=== PATIENT | female | born 1945 | race Caucasian/White ===

== ENCOUNTER 2016-11-15 21:13 | Emergency (ER) | payer MEDICARE, MEDICAID ==
[2016-11-16 00:30] LABS: ABSOLUTE BASOPHILS # (AUTO) 0.1 10^3/uL (0.0-0.2); ABSOLUTE EOSINOPHILS # (AUTO) 0.1 10^3/uL (0.0-0.6); ABSOLUTE MONOCYTES (AUTO) 0.5 10^3/uL (0.1-1.4); ABSOLUTE NEUT (AUTO) 4.7 10^3/uL (1.7-8.2); EOSINOPHILS % (AUTO) 1.9 % (0-6); HEMATOCRIT 38.6 % (36.0-47.0); HEMOGLOBIN 13.5 g/dL (12.0-15.5); HGB HCT DIFFERENCE 1.9; MEAN CORPUSCULAR HGB CONC 35.1 g/dL (32.0-36.0); MEAN CORPUSCULAR VOLUME 86 fl (80-97); MONOCYTES % (AUTO) 6.5 % (3-13); RED BLOOD COUNT 4.51 10^6/uL (3.72-5.28); RED CELL DISTRIBUTION WIDTH 13.1 % (11.5-14.0); SEGMENTED NEUTROPHILS % (AUTO) 63.6 % (42-78); WHITE BLOOD COUNT 7.3 10^3/uL (4.0-10.5)
[2016-11-16 00:36] LABS: PROTHROMBIN TIME 11.7 SEC (11.4-15.4)
[2016-11-16 00:41] LABS: ALANINE AMINOTRANSFERASE 30 U/L (9-52); ALBUMIN 4.7 g/dL (3.5-5.0); ALKALINE PHOSPHATASE 80 U/L (38-126); ANION GAP 17 (5-19); ASPARTATE AMINO TRANSFERASE 17 U/L (14-36); BILIRUBIN,DIRECT 0.3 mg/dL (0.0-0.4); BILIRUBIN,TOTAL 0.5 mg/dL (0.2-1.3); BLOOD UREA NITROGEN 20 mg/dL (7-20); CALCIUM 9.8 mg/dL (8.4-10.2); CARBON DIOXIDE 25 mmol/L (22-30); CHLORIDE 99 mmol/L (98-107); CREATININE RESULT 0.84 mg/dL (0.52-1.25); GLUCOSE 283 mg/dL (75-110); POTASSIUM 4.2 mmol/L (3.6-5.0); SODIUM 140.9 mmol/L (137-145); TOTAL PROTEIN 7.7 g/dL (6.3-8.2)
[2016-11-16 00:46] LABS: APPEARANCE,URINE CLEAR; BILIRUBIN,URINE NEGATIVE (NEGATIVE); GLUCOSE, URINE 150 mg/dL (NEGATIVE); KETONES,URINE NEGATIVE (NEGATIVE); LEUKOCYTE ESTERASE,URINE MODERATE (NEGATIVE); NITRITE,URINE NEGATIVE (NEGATIVE); PROTEIN,URINE NEGATIVE (NEGATIVE); URINE SPECIFIC GRAVITY 1.013; UROBILINOGEN,URINE NEGATIVE mg/dL (<2.0)
--- NOTE | 2016-11-16 00:52 | ER Document Report ---
ED Respiratory Problem - General Chief Complaint: Breathing Difficulty Stated Complaint: DIFFICULTY BREATHING Notes: The patient is a 71-year-old female, past medical history asthma, hypertension, presents with 2 days of mild wheezing and pain in her right upper back below her shoulder blade and worse when she moves her shoulder blade. She said she has had similar pain in the past when she was diagnosed with walking pneumonia. She is using her albuterol inhaler at home with relief of her shortness of breath. She denies fevers, cough, hemoptysis, leg swelling, nausea, vomiting, back pain, numbness, tingling, headache or rash. TRAVEL OUTSIDE OF THE [place] IN LAST 30 DAYS: No - Related Data Allergies/Adverse Reactions: butorphanol tartrate [From Stadol] Allergy (Verified 12/09/13 18:14) Penicillins Allergy (Verified 12/09/13 18:14) Tetanus Vaccines and Toxoid [Tetanus] Allergy (Verified 12/09/13 18:14) Past Medical History - General Information source: Patient - Social History Smoking Status: Former Smoker - in her 20's Family History: Reviewed & Not Pertinent Patient has suicidal ideation: No Patient has homicidal ideation: No - Past Medical History Cardiac Medical History: Reports: Hx Hypercholesterolemia, Hx Hypertension Pulmonary Medical History: Reports: Hx Asthma Neurological Medical History: Reports: Hx Seizures - LAST ONE WHEN SHE WAS 18 Endocrine Medical History: Reports: Hx Diabetes Mellitus Type 1 Renal/ Medical History: Denies: Hx Peritoneal Dialysis Psychiatric Medical History: Reports: Hx Depression Past Surgical History: Reports: Hx Cholecystectomy, Hx Hysterectomy - Immunizations Hx Diphtheria, Pertussis, Tetanus Vaccination: No Hx Pneumococcal Vaccination: 01/14/12 Review of Systems - Review of Systems Notes: REVIEW OF SYSTEMS: CONSTITUTIONAL: -fevers, -chills EENT: -eye pain, -difficulty swallowing, -nasal congestion CARDIOVASCULAR: +chest pain, -syncope. RESPIRATORY: -cough, +SOB GASTROINTESTINAL: -abdominal pain, -nausea, -vomiting, -diarrhea GENITOURINARY: -dysuria, -hematuria MUSCULOSKELETAL: +back pain, -neck pain SKIN: -rash or skin lesions. HEMATOLOGIC: -easy bruising or bleeding. LYMPHATIC: -swollen, enlarged glands. NEUROLOGICAL: -altered mental status or loss of consciousness, -headache, - neurologic symptoms PSYCHIATRIC: -anxiety, -depression. ALL OTHER SYSTEMS REVIEWED AND NEGATIVE. Physical Exam - Vital signs Vitals: Temp Pulse Resp BP Pulse Ox 98 F 90 20 193/84 H 97 11/15/16 22:32 11/15/16 22:32 11/15/16 22:32 11/15/16 22:32 11/15/16 22:32 - Notes Notes: PHYSICAL EXAMINATION: GENERAL: Well-appearing, well-nourished and in no acute distress. HEAD: Atraumatic, normocephalic. EYES: Pupils equal round and reactive to light, extraocular movements intact, sclera anicteric, conjunctiva are normal. ENT: nares patent, oropharynx clear without exudates. Moist mucous membranes. NECK: Normal range of motion, supple without lymphadenopathy LUNGS: Breath sounds clear to auscultation bilaterally and equal. No wheezes rales or rhonchi. HEART: Regular rate and rhythm without murmurs ABDOMEN: Soft, nontender, normoactive bowel sounds. No guarding, no rebound. No masses appreciated. EXTREMITIES: Normal range of motion, no pitting or edema. No cyanosis. Tenderness over right lower scapula. NEUROLOGICAL: Cranial nerves grossly intact. Normal speech, normal gait. Normal sensory, motor, and reflex exams. PSYCH: Normal mood, normal affect. SKIN: Warm, Dry, normal turgor, no rashes or lesions noted. Course - Re-evaluation Re-evalutation: Patient's chest x-ray and labs are unremarkable. Her HEART score is 3. Symptoms are reproducible when she moves her right scapula. Her symptoms are not consistent with PE or aortic dissection at this time. Blood pressure improved after taking her blood pressure medications and her wheezing completely resolved after using her home albuterol. Will send home with follow- up at primary care physician. Given strict return precautions and she understands. - Vital Signs Vital signs: Temp Pulse Resp BP Pulse Ox 98 F 90 18 193/84 H 97 11/15/16 22:32 11/15/16 22:32 11/16/16 01:05 11/15/16 22:32 11/15/16 22:32 - Laboratory Result Diagrams: 11/15/16 23:55 11/15/16 23:55 Laboratory results interpreted by me: 11/15/16 11/15/16 23:55 23:55 Glucose 283 H Urine Glucose (UA) 150 H Ur Leukocyte Esterase MODERATE H - Diagnostic Test Radiology reviewed: Image reviewed, Reports reviewed Radiology results interpreted by me: CXR: NAD - EKG Interpretation by Me EKG shows normal: Sinus rhythm, [place], Intervals, QRS Complexes, ST-T Waves Discharge - Discharge Clinical Impression: Wheezing Back pain Qualifiers: Back pain location: back pain in unspecified location Chronicity: unspecified Back pain laterality: right Qualified Code(s): M54.9 - Dorsalgia, unspecified Condition: Good Disposition: HOME, SELF-CARE Additional Instructions: Take Naprosyn to help with any pain. Follow-up with your primary care physician this week to have your symptoms rechecked. SHORTNESS OF BREATH OR DYSPNEA: You were evaluated for shortness of breath, or dyspnea. Dyspnea has many causes, and some are more serious than others. Sometimes it's impossible to diagnose the cause of dyspnea with the tests that are available on an emergency basis. Based on our evaluation today, you do not need hospitalization now. We found no evidence of pneumonia, collapsed lung, blood clots in the lung, tumors , or heart failure. Causes of non-specific dyspnea can include asthma or bronchospasm, hyperventilation, emotional distress, heart disease, emphysema, fibrosis of the lung, and stiffness of the chest wall. In healthy individuals with a single episode, it's sometimes reasonable to do nothing but wait to see if the problem occurs again. Additional tests used to evaluate dyspnea can include cardiac stress testing, echocardiography, pulmonary function testing, CAT scan of the chest, bronchoscopy or pulmonary biopsy. Return if shortness of breath persists or worsens, or if you develop chest pain, fever, cough, confusion, or fainting. NORMAL EXAM AND WORKUP: At this time, your examination and workup show no significant abnormality. No significant abnormal physical findings were noted. All laboratory, EKG, and imaging (x-ray, CT scans, ultrasound) studies that were ordered show no significant abnormality. Although your examination and all studies that were ordered showed no significant abnormal finding, there are no examinations and no studies that are 100% accurate. There is always the possibility that some abnormality could exist and not be detected with physical examination or within the limits and capabilities of laboratory and other studies. You should return or follow up as you were instructed on your visit today for further evaluation if your symptoms do not resolve. FOLLOW-UP CARE: If you have been referred to a physician for follow-up care, call the physician s office for an appointment as you were instructed or within the next two days. If you experience worsening or a significant change in your symptoms, notify the physician immediately or return to the Emergency Department at any time for re-evaluation. CHEST PAIN OF UNCLEAR CAUSE: The exact cause of your chest pain isn't clear. Fortunately, there is no evidence of a dangerous medical condition. Further testing may be required to find the source of the pain. Most often, we find that this pain is coming from the chest wall -- the muscles or rib joints in the chest. But chest pain can come from the lung and lung lining, the esophagus, the heart valves or heart lining, and even the stomach or gallbladder. Rest. Eat lightly until the pain is gone. We may prescribe medicine for pain and inflammation. You should call the physician immediately if the pain radiates to the shoulder, jaw or arms; if you start to run a fever or develop a cough; or if you develop shortness of breath, or other new or alarming symptoms. NORMAL EXAM AND WORKUP: At this time, your examination and workup show no significant abnormality. No significant abnormal physical findings were noted. All laboratory, EKG, and imaging (x-ray, CT scans, ultrasound) studies that were ordered show no significant abnormality. Although your examination and all studies that were ordered showed no significant abnormal finding, there are no examinations and no studies that are 100% accurate. There is always the possibility that some abnormality could exist and not be detected with physical examination or within the limits and capabilities of laboratory and other studies. You should return or follow up as you were instructed on your visit today for further evaluation if your symptoms do not resolve. CHEST WALL PAIN: Your chest pain may be coming from the chest wall. This is often caused by straining the muscles or joints in the chest during physical activity, direct trauma, coughing, or vigorous vomiting. Persons with arthritis are especially prone to this type of pain, due to inflammation of the cartilage joints near the breast bone. Occasionally, no cause can be found. Rest from strenuous physical activity. This kind of chest pain is usually made worse by movement of the chest. Depending on the symptoms, we may prescribe medicine for pain, muscle relaxation, and antiinflammatory effects. If the pain is new, and seems to be due to muscle strain, cold packs can help. Otherwise, apply gentle warmth to the painful area for 15 minutes every hour or two. You should call contact the doctor immediately if things change. Further evaluation is needed if you develop a fever or cough, if the nature of the pain changes, or if you become short of breath. FOLLOW-UP CARE: If you have been referred to a physician for follow-up care, call the physician s office for an appointment as you were instructed or within the next two days. If you experience worsening or a significant change in your symptoms, notify the physician immediately or return to the Emergency Department at any time for re-evaluation. Referrals: BETHANY AVERY, [Primary Care Provider] - Follow up as needed
[2016-11-16] MEDS ORDERED: NAPROXEN 250 MG TABLET PO ONE (02:09)
[2016-11-16 02:21] VITALS: BP 150/79
[2016-11-16] MEDS ORDERED: NAPROXEN 250 MG TABLET ONE (02:55)
--- NOTE | 2016-11-16 17:01 | EKG REPORT ---
SEVERITY:- ABNORMAL ECG - SINUS RHYTHM NONSPECIFIC T ABNORMALITIES, LATERAL LEADS : Confirmed by: Elizabeth Guo MD 16-Nov-2016 17:00:32
== END 2016-11-16 03:00 | disposition home or self-care (01) ==
LOC: ER 21:13
DX: R06.2 Wheezing (principal); M54.9 Dorsalgia, unspecified; R06.02 Shortness of breath; I10 Essential (primary) hypertension; M54.6 Pain in thoracic spine; Z87.891 Personal history of nicotine dependence
CPT/HCPCS: 93005; 99285; 36415; 85025; 85610; 80053; 81001; 71020; 93010; A9270

== ENCOUNTER 2017-07-17 13:11 | Inpatient (IN) | payer MEDICARE, MEDICAID ==
--- NOTE | 2017-07-17 14:27 | RADIOLOGY REPORT (SQ) ---
EXAM DESCRIPTION: CHEST SINGLE VIEW COMPLETED DATE/TIME: 07/17/2017 2:19 pm REASON FOR STUDY: loss of vision left eye, lateral field COMPARISON: 11/16/2016. EXAM PARAMETERS: NUMBER OF VIEWS: One view. TECHNIQUE: Single frontal radiographic view of the chest acquired. RADIATION DOSE: NA LIMITATIONS: None. FINDINGS: LUNGS AND PLEURA: No opacities, masses or pneumothorax. No pleural effusion. MEDIASTINUM AND HILAR STRUCTURES: No masses. Contour normal. HEART AND VASCULAR STRUCTURES: Heart normal in size. Normal vasculature. BONES: No acute findings. HARDWARE: None in the chest. OTHER: No other significant finding. IMPRESSION: NO ACUTE RADIOGRAPHIC FINDING IN THE CHEST. TECHNICAL DOCUMENTATION: JOB ID: [id number] [employer]- All Rights Reserved
--- NOTE | 2017-07-17 14:28 | ER Document Report ---
ED General - General Chief Complaint: Headache Stated Complaint: BLOOD PRESSURE ISSUES Time Seen by Provider: 07/17/17 14:07 Notes: The patient is a 72-year-old female, past medical history hypertension, prior headaches, bilateral cataracts, chronic pain, chronic anxiety, chronic tachycardia (on daily propranolol), presents with 3 days of a dull frontal headache and difficulty seeing out of her peripheral right eye. In addition, she noticed that her blood pressure was elevated at home. She said that she is taking her lisinopril and hydrochlorothiazide, but did not take her propranolol or Klonopin today. Patient has had headaches like this in the past that have resolved, but she has never had the visual changes before. She is supposed to have her bilateral cataracts removed, but she had to reschedule the appointment. Patient denies focal weakness, numbness, tingling, fevers, head injury, eye pain or fevers. TRAVEL OUTSIDE OF THE [place] IN LAST 30 DAYS: No - Related Data Allergies/Adverse Reactions: butorphanol tartrate [From Stadol] Allergy (Verified 07/17/17 13:14) Penicillins Allergy (Verified 07/17/17 13:14) Tetanus Vaccines and Toxoid [Tetanus] Allergy (Verified 07/17/17 13:14) Past Medical History - General Information source: Patient - Social History Smoking Status: Unknown if Ever Smoked Family History: Reviewed & Not Pertinent Patient has suicidal ideation: No Patient has homicidal ideation: No - Past Medical History Cardiac Medical History: Reports: Hx Hypercholesterolemia, Hx Hypertension Pulmonary Medical History: Reports: Hx Asthma Neurological Medical History: Reports: Hx Seizures - LAST ONE WHEN SHE WAS 18 Endocrine Medical History: Reports: Hx Diabetes Mellitus Type 1 Renal/ Medical History: Denies: Hx Peritoneal Dialysis Psychiatric Medical History: Reports: Hx Depression Past Surgical History: Reports: Hx Cholecystectomy, Hx Hysterectomy - Immunizations Hx Diphtheria, Pertussis, Tetanus Vaccination: No Hx Pneumococcal Vaccination: 01/14/12 Review of Systems - Review of Systems Notes: REVIEW OF SYSTEMS: CONSTITUTIONAL: -fevers, -chills EENT: +difficulty seeing out of peripheral right eye, -eye pain, -difficulty swallowing, -nasal congestion CARDIOVASCULAR: -chest pain, -syncope. RESPIRATORY: -cough, -SOB GASTROINTESTINAL: -abdominal pain, - nausea, -vomiting, -diarrhea GENITOURINARY: -dysuria, -hematuria MUSCULOSKELETAL: -back pain, -neck pain SKIN: -rash or skin lesions. HEMATOLOGIC: -easy bruising or bleeding. LYMPHATIC: -swollen, enlarged glands. NEUROLOGICAL: -altered mental status or loss of consciousness, +headache, - neurologic symptoms PSYCHIATRIC: -anxiety, -depression. ALL OTHER SYSTEMS REVIEWED AND NEGATIVE. Physical Exam - Vital signs Vitals: Temp Pulse Resp BP Pulse Ox 98.1 F 122 H 20 221/82 H 98 07/17/17 13:36 07/17/17 13:36 07/17/17 13:36 07/17/17 13:36 07/17/17 13:36 - Notes Notes: PHYSICAL EXAMINATION: GENERAL: No acute distress. Very anxious. HEAD: Atraumatic, normocephalic. EYES: Pupils equal round and reactive to light, extraocular movements intact, sclera anicteric, conjunctiva are normal. Visual beasley tested and no vision out of right peripheral eye. Bedside ultrasound shows no retinal detachment and normal caliber of optic nerve. ENT: nares patent, oropharynx clear without exudates. Moist mucous membranes. NECK: Normal range of motion, supple without lymphadenopathy LUNGS: Breath sounds clear to auscultation bilaterally and equal. No wheezes rales or rhonchi. HEART: Regular rhythm, tachycardia ABDOMEN: Soft, nontender, normoactive bowel sounds. No guarding, no rebound. No masses appreciated. EXTREMITIES: Normal range of motion, no pitting or edema. No cyanosis. NEUROLOGICAL: Normal speech, normal gait. Normal sensory and motor exams. No posterior cerebellar signs on exam. PSYCH: Anxious. SKIN: Warm, Dry, normal turgor, no rashes or lesions noted. Course - Re-evaluation Re-evalutation: Patient with 3 days of a dull right-sided headache and loss of her right peripheral vision. CT shows an acute occipital lobe infarct, which would explain her symptoms. Bedside ultrasound does not show evidence of retinal detachment and her symptoms are not typical for acute closed angle glaucoma. Patient is not a TPA candidate due to 3 days of symptoms. Her ABCD2 score is 5. ASA given. NIHSS is 1. Patient provided with her dose of propranolol and Klonopin, which she said she missed and may be causing her anxiety and tachycardia. She already took her Lisinopril and HCTZ this morning. Rest of blood work is unremarkable. Patient requires inpatient admission for further evaluation and risk stratification due to her acute CVA. 07/17/17 16:[address] Price and will admit patient as inpatient to IMCU for further evaluation and treatment. - Vital Signs Vital signs: Temp Pulse Resp BP Pulse Ox 98.1 F 108 H 18 192/95 H 97 07/17/17 13:36 07/17/17 15:00 07/17/17 16:01 07/17/17 16:01 07/17/17 16:20 - Laboratory Result Diagrams: 07/17/17 14:55 07/17/17 14:55 Laboratory results interpreted by me: 07/17/17 07/17/17 14:55 14:55 MCHC 36.2 H Chloride 96 L Carbon Dioxide 31 H Glucose 217 H Calcium 10.7 H - Diagnostic Test Radiology reviewed: Image reviewed, Reports reviewed Radiology results interpreted by me: Head CT: CHRONIC CHANGES OF ATROPHY AND MICROVASCULAR ISCHEMIA. DECREASED ATTENUATION IN THE LEFT OCCIPITAL LOBE CONSISTENT WITH ACUTE INFARCT. EVIDENCE OF ACUTE STROKE: YES. 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
--- NOTE | 2017-07-17 14:43 | ER Document Report ---
ED Medical Screen (RME) - General Mode of Arrival: Ambulatory Information source: Patient TRAVEL OUTSIDE OF THE [place] IN LAST 30 DAYS: No <SINTIA BARRETO - Last Filed: 07/17/17 16:16> <LEONEL GRIDER - Last Filed: 07/17/17 16:18> - General Chief Complaint: Headache Stated Complaint: BLOOD PRESSURE ISSUES Time Seen by Provider: 07/17/17 14:07 Notes: Patient is a 72 year old female presenting to the emergency department complaining of headache behind her right eye onset 3 days ago. Patient states that she has blurry vision in her right eye. I have greeted and performed a rapid initial assessment of this patient. A comprehensive ED assessment and evaluation of the patient, analysis of test results and completion of the medical decision making process will be conducted by additional ED providers. (SINTIA BARRETO) - Related Data Allergies/Adverse Reactions: butorphanol tartrate [From Stadol] Allergy (Verified 07/17/17 13:14) Penicillins Allergy (Verified 07/17/17 13:14) Tetanus Vaccines and Toxoid [Tetanus] Allergy (Verified 07/17/17 13:14) Past Medical History - Past Medical History Cardiac Medical History: Reports: Hx Hypercholesterolemia, Hx Hypertension Pulmonary Medical History: Reports: Hx Asthma Neurological Medical History: Reports: Hx Seizures - LAST ONE WHEN SHE WAS 18 Endocrine Medical History: Reports: Hx Diabetes Mellitus Type 1 Renal/ Medical History: Denies: Hx Peritoneal Dialysis Psychiatric Medical History: Reports: Hx Depression Past Surgical History: Reports: Hx Cholecystectomy, Hx Hysterectomy - Immunizations Hx Diphtheria, Pertussis, Tetanus Vaccination: No <SINTIA BARRETO - Last Filed: 07/17/17 16:16> Physical Exam <SINTIA BARRETO - Last Filed: 07/17/17 16:16> <LEONEL GRIDER - Last Filed: 07/17/17 16:18> - Vital signs Vitals: Temp Pulse Resp BP Pulse Ox 98.1 F 122 H 20 221/82 H 98 07/17/17 13:36 07/17/17 13:36 07/17/17 13:36 07/17/17 13:36 07/17/17 13:36 - Notes Notes: GENERAL: Alert, interacts well. No acute distress. ENT: Visual field deficit in the lateral aspect of the right eye. LUNGS: Clear to auscultation bilaterally, no wheezes, rales, or rhonchi. No respiratory distress. HEART: Regular rate and rhythm. No murmurs, gallops, or rubs. ABDOMEN: Soft, non-tender. Non-distended. Bowel sounds present in all 4 quadrants. (SINTIA BARRETO) Course - Laboratory Result Diagrams: 07/17/17 14:55 07/17/17 14:55 <SINTIA BARRETO - Last Filed: 07/17/17 16:16> - Laboratory Result Diagrams: 07/17/17 14:55 07/17/17 14:55 <LEONEL GRIDER - Last Filed: 07/17/17 16:18> - Vital Signs Vital signs: Temp Pulse Resp BP Pulse Ox 98.1 F 122 H 20 221/82 H 98 07/17/17 13:36 07/17/17 13:36 07/17/17 13:36 07/17/17 13:36 07/17/17 13:36 - Laboratory Laboratory results interpreted by me: 07/17/17 07/17/17 14:55 14:55 MCHC 36.2 H Chloride 96 L Carbon Dioxide 31 H Glucose 217 H Calcium 10.7 H Doctor's Discharge <SINTIA BARRETO - Last Filed: 07/17/17 16:16> <LEONEL GRIDER - Last Filed: 07/17/17 16:18> - Discharge Clinical Impression: Acute CVA (cerebrovascular accident), Visual field loss following cerebrovascular accident Condition: Stable Referrals: BETHANY AVERY DO [Primary Care Provider] - Follow up as needed Scribe Documentation - Scribe Written by Scribe:: Juventino Carr, 07/17/2017 14:42 acting as scribe for :: Tyler <SINTIA BARRETO - Last Filed: 07/17/17 16:16>
[2017-07-17] MEDS ORDERED: CLONAZEPAM 1 MG TABLET PO ONE (14:47)
[2017-07-17] MEDS ORDERED: LISINOPRIL 10 MG TABLET PO ONE (14:47)
[2017-07-17] MEDS ORDERED: NORMAL SALINE 1000 ML 1,000 ML IV ONE (14:47)
[2017-07-17] MEDS ORDERED: PROPRANOLOL HCL 20 MG TABLET PO ONE (14:47)
[2017-07-17] MEDS ORDERED: HYDROCHLOROTHIAZIDE 12.5 MG CAPSULE PO ONE (14:47)
[2017-07-17] MEDS ORDERED: ASPIRIN 325 MG TABLET PO ONE (14:59)
--- NOTE | 2017-07-17 15:00 | RADIOLOGY REPORT (SQ) ---
EXAM DESCRIPTION: CT HEAD WITHOUT COMPLETED DATE/TIME: 07/17/2017 2:33 pm REASON FOR STUDY: loss of vision left eye, lateral field COMPARISON: None. TECHNIQUE: Axial images acquired through the brain without intravenous contrast. Images reviewed wi th bone, brain and subdural windows. Images stored on PACS. All CT scanners at this facility use dose modulation, iterative reconstruction, and/or weight based d osing when appropriate to reduce radiation dose to as low as reasonably achievable (ALARA). [facility]: Dose Right [facility]: CareDose [facility]: Dose Right [facility]: Teradose 4D [facility]: Smart [employer] RADIATION DOSE: CT Rad equipment meets quality standard of care and radiation dose reduction techniq ues were employed. CTDIvol: 64.6 mGy. DLP: 1163 mGy-cm.mGy. LIMITATIONS: None. FINDINGS: VENTRICLES: Prominent. CEREBRUM: No masses. No hemorrhage. No midline shift. Areas of low density in the white matter mos t likely due to chronic micro-vascular ischemic change. Area of decreased attenuation in the left oc cipital lobe. CEREBELLUM: No masses. No hemorrhage. No alteration of density. No evidence for acute infarction. EXTRAAXIAL SPACES: Age-related involutional change. No fluid collections. No masses. ORBITS AND GLOBE: No intra- or extraconal masses. Normal contour of globe without masses. CALVARIUM: No fracture. PARANASAL SINUSES: No fluid or mucosal thickening. SOFT TISSUES: No mass or hematoma. OTHER: No other significant finding. IMPRESSION: CHRONIC CHANGES OF ATROPHY AND MICROVASCULAR ISCHEMIA. DECREASED ATTENUATION IN THE LEF T OCCIPITAL LOBE CONSISTENT WITH ACUTE INFARCT. EVIDENCE OF ACUTE STROKE: YES. 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 Category of Critical Result: Acute cerebral infarct. TECHNICAL DOCUMENTATION: JOB ID: [id number] Quality ID # [id number]: Final reports with documentation of one or more dose reduction techniques (e.g., Au tomated exposure control, adjustment of the mA and/or kV according to patient size, use of iterative reconstruction technique) 2010 [employer]- All Rights Reserved
[2017-07-17 15:02] LABS: ABSOLUTE LYMPHOCYTES (AUTO) 1.3 10^3/uL (0.5-4.7); ABSOLUTE MONOCYTES (AUTO) 0.3 10^3/uL (0.1-1.4); BASOPHILS % (AUTO) 0.5 % (0-2); EOSINOPHILS % (AUTO) 0.6 % (0-6); HEMATOCRIT 41.5 % (36.0-47.0); LYMPHOCYTES % (AUTO) 16.9 % (13-45); MEAN CORPUSCULAR HEMOGLOBIN 31.8 pg (27.0-33.4); MEAN CORPUSCULAR HGB CONC 36.2 g/dL (32.0-36.0); MEAN CORPUSCULAR VOLUME 88 fl (80-97); MONOCYTES % (AUTO) 4.4 % (3-13); PLATELET COUNT 215 10^3/uL (150-450); RED BLOOD COUNT 4.72 10^6/uL (3.72-5.28); RED CELL DISTRIBUTION WIDTH 13.6 % (11.5-14.0); SEGMENTED NEUTROPHILS % (AUTO) 77.6 % (42-78); TOTAL CELLS COUNTED % (AUTO) 100 %; WHITE BLOOD COUNT 7.8 10^3/uL (4.0-10.5)
[2017-07-17 15:08] LABS: INTERNATIONAL RATION (INR) 0.81; PROTHROMBIN TIME 11.8 SEC (11.4-15.4)
[2017-07-17 15:10] LABS: PARTIAL THROMBOPLASTIN TIME 27.3 SEC (23.5-35.8)
[2017-07-17 15:25] LABS: ALANINE AMINOTRANSFERASE 31 U/L (9-52); ALBUMIN 4.9 g/dL (3.5-5.0); ALKALINE PHOSPHATASE 80 U/L (38-126); ANION GAP 13 (5-19); ASPARTATE AMINO TRANSFERASE 23 U/L (14-36); BILIRUBIN,DIRECT 0.2 mg/dL (0.0-0.4); BILIRUBIN,TOTAL 0.4 mg/dL (0.2-1.3); BLOOD UREA NITROGEN 15 mg/dL (7-20); CALCIUM 10.7 mg/dL (8.4-10.2); CARBON DIOXIDE 31 mmol/L (22-30); CHLORIDE 96 mmol/L (98-107); CREATINE KINASE 49 U/L (30-135); GLUCOSE 217 mg/dL (75-110); POTASSIUM 4.6 mmol/L (3.6-5.0); SODIUM 140.1 mmol/L (137-145); TOTAL PROTEIN 8.1 g/dL (6.3-8.2)
--- NOTE | 2017-07-17 15:34 | ER Document Report ---
ED NIH Stroke Scale - NIH Stroke Scale When completed:: Before Alteplase *: 1. NIH scale should be completed with appropriate accompanying assessment tools. *: 2. The NIH should reflect what the patient is capable of doing and should not be coached by the clinician. 1a. Level of Consciousness: 0=Alert;keenly responsive -: 1=Drowsy -: 2=Obtunded -: 3=Coma/unresponsive or reflex to noxious stimuli. 1a. Responses: 0 1b. Orientation Questions: a. What month is it? -: b. How old are you? -: 0=Answers both questions correctly. -: 1=Answers one question correctly or patient is intubated or has orotracheal trauma. -: 2=Answers neither question correctly. 1b. Responses: 0 1c. Response to commands: a. Open and close eyes? -: b. Cafe Aide and release hand? -: Credit is given despite weakness. Demonstration of task is permitted. Substitute command if hands cannot be used. -: 0=Performs both tasks correctly -: 1=Performs one task correctly -: 2=Performs neither task correctly 1c. Responses: 0 2. Gaze: Establish eye contact and instruct patient to "Follow my finger" -: 0=Normal -: 1=Partial gaze palsy. Gaze is abnormal in one or both eyes, but where forced deviation or total gaze paresis is not present. -: 2=Forced deviation or total gaze paresis. 2. Responses: 0 3. Visual Parsons: Sees fingers in all four quadrants. -: 0=No visual loss. -: 1=Partial hemianopsia. -: 2=Complete hemianopsia. -: 3=Bilateral hemianopsia (including Cortical blindness) 3. Responses: 1 4. Facial Movement: Instruct patient to: -: a. Show me your teeth -: b. Raise your eyebrows -: c. Close your eyes -: d. Smile -: 0=Normal symmetrical movement -: 1=Minor paralysis (flattened nasolabial fold, asymmetry on smiling). -: 2=Partial paralysis (total or near total paralysis of lower face). -: 3=Complete paralysis of upper and lower face 4. Responses: 0 5. Motor functions (left arm): Alternate sides and extend each arm with palms down (90 degrees if sitting or 45 degrees for supine). -: 0=No drift;limb holds for full 10 seconds. -: 1=Drift; limb holds but drifts down before full 10 seconds, but does not hit bed. -: 2=Some effort against gravity; limb cannot get to or maintain position. -: 3=No effort against gravity; limb falls. -: 4=No movement. -: UN=Amputation, joint fusion, explain in comments. 5. Responses (left arm): 0 5. Motor Functions (right arm): Alternate sides and extend each arm with palms down (90 degrees if sitting or 45 degrees for supine). -: 0=No drift;limb holds for full 10 seconds. -: 1=Drift; limb holds but drifts down before full 10 seconds, but does not hit bed. -: 2=Some effort against gravity; limb cannot get to or maintain position. -: 3=No effort against gravity; limb falls. -: 4=No movement. -: UN=Amputation, joint fusion, explain in comments. 5. Responses (right arm): 0 6. Motor Functions (left leg): With patient lying supine, alternate sides and extend each leg (30 degrees always while supine). -: 0=No drift, leg holds position for full 5 seconds -: 1=Drift; leg falls before full 5 seconds but does not hit bed. -: 2=Some effort against gravity, leg falls to bed but some effort against gravity. -: 3=No effort against gravity, leg falls to bed immediately. -: 4=No movement. -: UN=Amputation, joint fusion; explain in comments. 6. Responses (left leg): 0 6. Motor Functions (right leg): With patient lying supine, alternate sides and extend each leg (30 degrees always while supine). -: 0=No drift, leg holds position for full 5 seconds -: 1=Drift; leg falls before full 5 seconds but does not hit bed. -: 2=Some effort against gravity, leg falls to bed but some effort against gravity. -: 3=No effort against gravity, leg falls to bed immediately. -: 4=No movement. -: UN=Amputation, joint fusion; explain in comments. 6. Responses (right leg): 0 7. Limb Ataxia: With eyes open instruct patient to: -: a. "Touch your finger to your nose". -: b. "Touch your heel to your massey" -: 0=Absent -: 1=Present in one limb. -: 2=Present in two limbs. -: UN=Amputation or joint fusion; explain in comments. 7. Responses: 0 8. Sensory: Test sensation using pinprick or noxious stimuli. Test as many body parts as possible. -: 0=Normal;no sensory loss -: 1=Mile to moderate sensory loss (patient feels pin prick but is less sharp on affected side). -: 2=Severe or total sensory loss. 8. Responses: 0 9. Best Language: Instruct patient to: -: a. "Describe what you see in this picture." -: b. "Name the items in this picture." -: c. "Read these sentences." -: 0=No aphasia, normal -: 1=Mild to moderate aphasia. -: 2=Severe aphasia -: 3=Mute, global aphasia, no usable speech or auditory comprehension. 9. Responses: 0 10. Articulation, Dysarthia: Instruct patient to: -: "Read these words" or "Repeat these words" -: 0=Normal -: 1=Mild to moderate; patient may slur some words but can be understood without difficulty. -: 2=Severe; patients speech so slurred as to be unintelligible in the absence of dysphasia. -: UN=Intubated or other physical barrier, explain in comments. 10. Responses: 0 11. Extinction or inattention: 0=No abnormality -: 1= Visual, tactile, auditory, spatial, or personal inattention or extinction to bilateral simulation in one or the sensory modalities. -: 2=Profound kathy-inattention or kathy-inattention to more than one modality; does not recognize own hand. 11. Responses: 0 Total Score: 1
[2017-07-17] MEDS ORDERED: MAG HYDROX/AL HYDROX/SIMETH SUSP 30 ML UDCUP PO PRN (16:52)
[2017-07-17] MEDS ORDERED: NIFEDIPINE 30 MG TAB.ER.24 PO ONE ×2 (17:04→21:00)
[2017-07-17] MEDS ORDERED: NORMAL SALINE 1000 ML 1,000 ML IV PRN ×2 (17:32→17:43)
[2017-07-17] MEDS ORDERED: DEXTROSE 40% GEL 15 GM TUBE PO PRN ×2 (17:32)
[2017-07-17] MEDS ORDERED: DEXTROSE 50%-WATER 25 GM/50 ML DISP.SYRIN IV PRN ×2 (17:32)
[2017-07-17] MEDS ORDERED: GLUCAGON,HUMAN RECOMB 1 MG INJ IM PRN (17:32)
--- NOTE | 2017-07-17 17:42 | PDOC H&P ---
History of Present Illness Admission Date/PCP: 07/17/2017 BETHANY AVERY DO Patient complains of: Right Eye Peripheral Vision Loss 3 days ago. History of Present Illness: HEIDI WEISS is a 72 year old female present to the ER with 3 days of right eye vision changes. Pt states that she had severe headache 3 days ago and then noticed loss of vision in her peripheral eye. Pt states that she stayed at home due to hoping that it would go away. Pt states that he was diagnosed with Paroxysmal A. Fibrillation several years ago. Pt states that she was placed on Inderal and later stated taken a baby aspirin. Pt states that she stopped aspirin after she developed a stomach ulcer and stopped aspirin. Past Medical History Cardiac Medical History: Reports: Hyperlipidema, Hypertension Pulmonary Medical History: Reports: Asthma Neurological Medical History: Reports: Seizures - LAST ONE WHEN SHE WAS 18 Endocrine Medical History: Reports: Diabetes Mellitus Type 1 Psychiatric Medical History: Reports: Depression Past Surgical History Past Surgical History: Reports: Cholecystectomy, Hysterectomy Social History Smoking Status: Unknown if Ever Smoked Frequency of Alcohol Use: None Hx Recreational Drug Use: No Hx Prescription Drug Abuse: No - Advance Directive Resuscitation Status: Full Code Family History Family History: Reviewed & Not Pertinent Parental Family History Reviewed: Yes Children Family History Reviewed: Yes Sibling(s) Family History Reviewed.: Yes Medication/Allergy Home Medications: Alprazolam [Xanax 2 mg Tablet] 1 tab PO Q6H PRN 01/09/13 Cyclobenzaprine HCl [Flexeril 10 mg Tablet] 5 mg PO TIDP PRN 01/09/13 Ferrous Sulfate [Iron] 325 mg PO TID 01/09/13 Lisinopril/Hydrochlorothiazide [Lisinopril-Hctz 20-12.5 mg Tab] 1 each PO BID Albuterol Sulfate [Proair HFA] 2 puff IH Q4 PRN 12/09/13 Amitriptyline HCl [Elavil 75 mg Tablet] 75 mg PO QHS 12/09/13 Esomeprazole Magnesium [Nexium] 40 mg PO DAILY PRN 12/09/13 Levothyroxine Sodium [Synthroid] 200 mcg PO DAILY 12/09/13 Lovaza 4 cap.sr PO DAILY 12/09/13 Meclizine HCl [Antivert 25 mg Tablet] 25 mg PO QIDP PRN 12/09/13 Metformin HCl [Glucophage] 1,000 mg PO BID 12/09/13 Hurst, Insulin Disposable [Unifine Pentips] 1 each MC ASDIR PRN 12/09/13 Polyethylene Glycol [Polyox Wsr-301] 17 gm PO DAILY 12/09/13 Promethazine HCl 25 mg PO Q6HP PRN 12/09/13 Propranolol HCl [Inderal 20 mg Tablet] 20 mg PO TID 12/09/13 Tiotropium Walker [Spiriva Handihaler 18 mcg/dose (30 Dose)] 1 cap IH DAILY Levofloxacin [Levaquin 750 mg Tablet] 750 mg PO DAILY #10 tab 08/03/14 Methylprednisolone [Medrol Dosepack (4 mg/Tab) 21 Tab/Dosepak] 4 mg PO ASDIR PRN #21 tab.ds.pk 08/03/14 Oxycodone HCl 30 mg PO Q6HP PRN #30 tablet 08/03/14 Doxycycline Hyclate 100 mg PO BID #14 capsule 02/12/16 Hydrocodone/Acetaminophen [Barnhart 5-325 mg Tablet] 1 - 2 tab PO Q6 #14 tablet Allergies/Adverse Reactions: butorphanol tartrate [From Stadol] Allergy (Verified 07/17/17 13:14) Penicillins Allergy (Verified 07/17/17 13:14) Tetanus Vaccines and Toxoid [Tetanus] Allergy (Verified 07/17/17 13:14) Review of Systems Constitutional: ABSENT: chills, fever(s), headache(s), weight gain, weight loss Eyes: PRESENT: visual disturbances Ears: ABSENT: hearing changes Cardiovascular: ABSENT: chest pain, dyspnea on exertion, edema, orthropnea, palpitations Respiratory: ABSENT: cough, hemoptysis Gastrointestinal: ABSENT: abdominal pain, constipation, diarrhea, hematemesis, hematochezia, nausea, vomiting Genitourinary: ABSENT: dysuria, hematuria Musculoskeletal: ABSENT: joint swelling Integumentary: ABSENT: rash, wounds Neurological: PRESENT: other - Right eye peripheral vision loss Psychiatric: ABSENT: anxiety, depression, homidical ideation, suicidal ideation Endocrine: ABSENT: cold intolerance, heat intolerance, polydipsia, polyuria Hematologic/Lymphatic: ABSENT: easy bleeding, easy bruising Physical Exam Vital Signs: Temp Pulse Resp BP Pulse Ox 98.1 F 108 H 18 192/95 H 97 07/17/17 13:36 07/17/17 15:00 07/17/17 16:01 07/17/17 16:01 07/17/17 16:20 Intake & Output 07/16/17 07/17/17 07/18/17 06:59 06:59 06:59 Weight 70.5 kg General appearance: PRESENT: no acute distress, well-developed, well-nourished Head exam: PRESENT: atraumatic, normocephalic Eye exam: PRESENT: conjunctiva pink, EOMI Ear exam: PRESENT: normal external ear exam Mouth exam: PRESENT: moist, tongue midline Neck exam: ABSENT: carotid bruit, JVD, lymphadenopathy, thyromegaly Respiratory exam: PRESENT: clear to auscultation giuliano. ABSENT: rales, rhonchi, wheezes Cardiovascular exam: PRESENT: RRR. ABSENT: diastolic murmur, rubs, systolic murmur Pulses: PRESENT: normal dorsalis pedis pul Vascular exam: PRESENT: normal capillary refill GI/Abdominal exam: PRESENT: normal bowel sounds, soft. ABSENT: distended, guarding, mass, organolmegaly, rebound, tenderness Rectal exam: PRESENT: deferred Extremities exam: PRESENT: full ROM. ABSENT: calf tenderness, clubbing, pedal edema Musculoskeletal exam: PRESENT: full ROM Neurological exam: PRESENT: alert, awake, oriented to person, oriented to place , oriented to time, oriented to situation Psychiatric exam: PRESENT: appropriate affect, normal mood. ABSENT: homicidal ideation, suicidal ideation Skin exam: PRESENT: dry, intact, warm. ABSENT: cyanosis, rash Results Laboratory Results: 07/17/17 14:55 07/17/17 14:55 07/17/17 07/17/17 14:55 14:55 WBC 7.8 RBC 4.72 Hgb 15.0 Hct 41.5 MCV 88 MCH 31.8 MCHC 36.2 H RDW 13.6 Plt Count 215 Seg Neutrophils % 77.6 Lymphocytes % 16.9 Monocytes % 4.4 Eosinophils % 0.6 Basophils % 0.5 Absolute Neutrophils 6.0 Absolute Lymphocytes 1.3 Absolute Monocytes 0.3 Absolute Eosinophils 0.0 Absolute Basophils 0.0 Sodium 140.1 Potassium 4.6 Chloride 96 L Carbon Dioxide 31 H Anion Gap 13 BUN 15 Creatinine 0.73 Est GFR ( Amer) > 60 Est GFR (Non-Af Amer) > 60 Glucose 217 H Calcium 10.7 H Total Bilirubin 0.4 AST 23 ALT 31 Alkaline Phosphatase 80 Total Protein 8.1 Albumin 4.9 07/17/17 07/17/17 14:55 14:55 Creatine Kinase 49 Troponin I < 0.012 Impressions: Chest X-Ray 07/17/17 14:12 IMPRESSION: NO ACUTE RADIOGRAPHIC FINDING IN THE CHEST. Head CT 07/17/17 14:12 IMPRESSION: CHRONIC CHANGES OF ATROPHY AND MICROVASCULAR ISCHEMIA. DECREASED ATTENUATION IN THE LEFT OCCIPITAL LOBE CONSISTENT WITH ACUTE INFARCT. EVIDENCE OF ACUTE STROKE: YES. 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 fib. Will place on Eliquis. Recommend Holter monitor as outpatient. Will check 2 D echo, Carotid U/S, PT/OT/ST, HbgA1C, Lipid Profile, TSH/Free T4. (2) Visual field loss following cerebrovascular accident Is this a current diagnosis for this admission?: Yes Plan: Secondary to Acute Stroke: Will continue ASA and start Eliquis. Pt states that symptoms occurred 3 days ago and confirmed by . (3) Hyperglycemia due to type 2 diabetes mellitus Is this a current diagnosis for this admission?: Yes Plan: Will place on SSI and Lantus 15 units SC Daily. (4) Hypertensive urgency Is this a current diagnosis for this admission?: Yes Plan: Will place on Procardia 30mg PO Qdaily, Metoprolol 25mg PO BID, Lisinopril 40 mg PO Qdaily. Will continue to monitor. (5) Hypercalcemia Is this a current diagnosis for this admission?: Yes Plan: Will check calcium level in am. Will check Ionized Ca. Will check Vit D 25 OH , PTH. (6) History of gastric ulcer Is this a current diagnosis for this admission?: Yes Plan: Will continue pt on PPI. (7) DVT prophylaxis Is this a current diagnosis for this admission?: Yes Plan: SCDs/ Eliquis - Time Time Spent: 30 to 50 Minutes Anticipated discharge: Home
--- NOTE | 2017-07-17 18:52 | EKG REPORT ---
SEVERITY:- NORMAL ECG - SINUS RHYTHM : Confirmed by: Jarek Mars MD 17-Jul-2017 18:52:10
[2017-07-17] MEDS: ACETAMINOPHEN 325 MG TABLET PO PRN (20:00)
--- NOTE | 2017-07-17 20:15 | RADIOLOGY REPORT (SQ) ---
EXAM DESCRIPTION: CAROTID DOPPLER COMPLETED DATE/TIME: 07/17/2017 7:51 pm REASON FOR STUDY: CVA COMPARISON: None. TECHNIQUE: Grayscale ultrasound, Doppler velocity and spectra, and color Doppler images acquired of the extra-cranial carotid and vertebral arteries. Images stored on PACS. LIMITATIONS: None. FINDINGS: RIGHT CAROTID CCA Velocities: Within normal limits. ICA Velocities Peak systolic 122 m/s. End diastolic 27 m/s. Proximal ICA/CCA peak systolic ratio 1.1. Spectra normal. No significant plaque. LEFT CAROTID CCA Velocities: Within normal limits. ICA Velocities Peak systolic 102 m/s. End diastolic 19 m/s. Proximal ICA/CCA peak systolic ratio 0.8. Spectra normal. No significant plaque. VERTEBRAL ARTERIES: Antegrade flow. Normal waveforms. SUBCLAVIAN ARTERIES: No finding. OTHER: No other significant finding. IMPRESSION: NO HEMODYNAMICALLY SIGNIFICANT STENOSIS. COMMENT: Quality ID #[id number]: Velocity criteria are extrapolated from the diameter data as defined by t [place] Society of Radiologists in Ultrasound Consensus Conference. Radiology 2003: 229; 340-346. TECHNICAL DOCUMENTATION: JOB ID: [id number] [place]-72 2010 [employer]- All Rights Reserved
[2017-07-17] MEDS ORDERED: LORAZEPAM INJ 2 MG/1 ML VIAL IV ONE (21:00)
[2017-07-17] MEDS: METOPROLOL TARTRATE 25 MG TABLET PO SCH (21:06)
[2017-07-17] MEDS: APIXABAN 5 MG TABLET PO SCH (21:06)
--- NOTE | 2017-07-17 22:34 | RADIOLOGY REPORT (SQ) ---
EXAM DESCRIPTION: MRI HEAD WITHOUT COMPLETED DATE/TIME: 07/17/2017 10:13 pm REASON FOR STUDY: CVA COMPARISON: None. TECHNIQUE: Multiplanar imaging includes non-contrasted T1, T2, FLAIR, and Diffusion with ADC map seq uences. Images stored on PACS. LIMITATIONS: None. FINDINGS: ANATOMY: No anomalies. Normal vascular flow voids. Pituitary fossa normal. CSF SPACES: Normal in size and contour. No hemorrhage. CEREBRUM: Scattered high-signal intensity lesions scattered throughout the white matter on FLAIR imag ing with distribution suggesting chronic micro-vascular ischemic change. No evidence of hemorrhage, mass or extraaxial fluid collection. POSTERIOR FOSSA: No signal alteration. No hemorrhage. No edema, masses or mass effect. Internal oswaldo tory canals, cerebello-pontine angles, mastoids normal. DIFFUSION: Positive for acute or sub-acute infarction in the left occipital lobe. ORBITS: No masses. Globes normal. PARANASAL SINUSES: No fluid levels. Mucosa normal. OTHER: No other significant finding. IMPRESSION: Positive for acute or sub-acute infarction in the left occipital lobe. 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
--- NOTE | 2017-07-17 22:36 | RADIOLOGY REPORT (SQ) ---
EXAM DESCRIPTION: MRA HEAD WITHOUT COMPLETED DATE/TIME: 07/17/2017 10:13 pm REASON FOR STUDY: CVA COMPARISON: None. TECHNIQUE: Axial 3-D [id number] acquisition imaging performed through the brain in the area of t he [place] of [place]. Images reformatted using 3-D MIPS. LIMITATIONS: None. 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 No large masses. 3-D MIP: No aneurysm. 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 No significant stenosis. OTHER: No other significant finding. IMPRESSION: Occluded left LEAD WORKER OF HOUSEKEEPING AND LAUNDRY beyond its initial 2 cm. TECHNICAL DOCUMENTATION: JOB ID: [id number] [place]-72 2010 [employer]- All Rights Reserved
[2017-07-17] MEDS: AMITRIPTYLINE HCL 75 MG TABLET PO SCH (23:43)
[2017-07-18 05:11] LABS: ABSOLUTE EOSINOPHILS # (AUTO) 0.1 10^3/uL (0.0-0.6); ABSOLUTE LYMPHOCYTES (AUTO) 1.7 10^3/uL (0.5-4.7); ABSOLUTE MONOCYTES (AUTO) 0.4 10^3/uL (0.1-1.4); ABSOLUTE NEUT (AUTO) 3.2 10^3/uL (1.7-8.2); BASOPHILS % (AUTO) 0.8 % (0-2); HEMATOCRIT 34.9 % (36.0-47.0); LYMPHOCYTES % (AUTO) 30.6 % (13-45); MEAN CORPUSCULAR HEMOGLOBIN 31.3 pg (27.0-33.4); MEAN CORPUSCULAR HGB CONC 35.4 g/dL (32.0-36.0); MEAN CORPUSCULAR VOLUME 88 fl (80-97); MONOCYTES % (AUTO) 7.8 % (3-13); PLATELET COUNT 196 10^3/uL (150-450); RED BLOOD COUNT 3.94 10^6/uL (3.72-5.28); RED CELL DISTRIBUTION WIDTH 13.5 % (11.5-14.0); SEGMENTED NEUTROPHILS % (AUTO) 58.8 % (42-78); TOTAL CELLS COUNTED % (AUTO) 100 %; WHITE BLOOD COUNT 5.5 10^3/uL (4.0-10.5)
[2017-07-18 05:25] LABS: ALANINE AMINOTRANSFERASE 28 U/L (9-52); ALBUMIN 3.6 g/dL (3.5-5.0); ALKALINE PHOSPHATASE 60 U/L (38-126); ANION GAP 8 (5-19); ASPARTATE AMINO TRANSFERASE 17 U/L (14-36); BILIRUBIN,DIRECT 0.2 mg/dL (0.0-0.4); BILIRUBIN,TOTAL 0.3 mg/dL (0.2-1.3); BLOOD UREA NITROGEN 15 mg/dL (7-20); CALCIUM 9.5 mg/dL (8.4-10.2); CARBON DIOXIDE 29 mmol/L (22-30); CHLORIDE 101 mmol/L (98-107); GLUCOSE 237 mg/dL (75-110); POTASSIUM 4.1 mmol/L (3.6-5.0); SODIUM 138.1 mmol/L (137-145); TRIGLYCERIDES 219 mg/dL (<150)
[2017-07-18 05:27] LABS: HEMOGLOBIN 12.4 g/dL (12.0-15.5)
[2017-07-18 05:36] LABS: DIRECT LDL 106 mg/dL (<100)
[2017-07-18 05:41] LABS: FREE T4 (FREE THYROXINE) 1.45 ng/dL (0.78-2.19); VLDL CHOLESTEROL 43.8 mg/dL (10-31)
[2017-07-18 05:54] LABS: THYROID STIMULATING HORMONE 0.26 uIU/mL (0.47-4.68)
[2017-07-18] MEDS: LANSOPRAZOLE 30 MG TAB.RAP.DR PO SCH (06:39)
[2017-07-18] MEDS ORDERED: LOVAZA PO SCH (10:00)
[2017-07-18] MEDS ORDERED: INSULIN GLARGINE,HUM.REC.ANLOG 300 UNIT/3 ML INSULN.PEN SUBCUT SCH (10:00)
[2017-07-18] MEDS ORDERED: ALBUTEROL SULFATE HFA (90 MCG/PUFF) 8 GM MDI (1 MDI/ER DISP) IH PRN (11:23)
[2017-07-18] MEDS ORDERED: (PENDING PHARMACY ID) (Oxycodone Hcl/Acetaminophen [Oxycodone-Acetaminophen 10-325] 1 TAB) PO PRN (11:23)
--- NOTE | 2017-07-18 11:48 | PDOC PROGRESS REPORT ---
Subjective Progress Note for:: 07/18/17 Subjective:: Patient admitted for right peripheral vision loss due to an occipital stroke. Patient is doing well. Explained to her that she has a stroke in the part of the brain which affects her vision. Explained to her that she should evaluated for afib. with a holter monitor. Explained to her that the medication can cause her to bleed however if she doesn't treat her afib she is at risk for another stroke. Reason For Visit: ACUTE LEFT OCCIPITAL LOBE WITH RIGHT EYE VISION Physical Exam Vital Signs: Temp Pulse Resp BP Pulse Ox 97.9 F 86 18 140/69 H 95 07/18/17 07:59 07/18/17 08:00 07/18/17 08:00 07/18/17 08:00 07/18/17 08:00 Intake & Output 07/17/17 07/18/17 07/19/17 06:59 06:59 06:59 Intake Total 1050 Balance 1050 Weight 72.3 kg General appearance: PRESENT: no acute distress, disheveled, other - elderly Head exam: PRESENT: atraumatic, normocephalic Eye exam: PRESENT: EOMI. ABSENT: scleral icterus Ear exam: PRESENT: normal external ear exam Mouth exam: PRESENT: moist, tongue midline Neck exam: ABSENT: carotid bruit, JVD, lymphadenopathy, thyromegaly Respiratory exam: PRESENT: clear to auscultation giuliano. ABSENT: rales, rhonchi, wheezes Cardiovascular exam: PRESENT: RRR. ABSENT: diastolic murmur, rubs, systolic murmur Pulses: PRESENT: normal dorsalis pedis pul Vascular exam: PRESENT: normal capillary refill GI/Abdominal exam: PRESENT: normal bowel sounds, soft. ABSENT: distended, guarding, mass, organolmegaly, rebound, tenderness Rectal exam: PRESENT: deferred Extremities exam: PRESENT: full ROM. ABSENT: calf tenderness, clubbing, pedal edema Neurological exam: PRESENT: alert, awake, oriented to person, oriented to place , oriented to time, oriented to situation, other - no peripheral vision in right eye.. ABSENT: motor sensory deficit Psychiatric exam: PRESENT: appropriate affect, normal mood. ABSENT: homicidal ideation, suicidal ideation Skin exam: PRESENT: dry, intact, warm. ABSENT: cyanosis, rash Results Laboratory Results: 07/18/17 04:35 07/18/17 04:35 07/17/17 07/18/17 07/18/17 18:08 04:35 04:35 WBC 5.5 RBC 3.94 Hgb 12.4 D Hct 34.9 L MCV 88 MCH 31.3 MCHC 35.4 RDW 13.5 Plt Count 196 Seg Neutrophils % 58.8 Lymphocytes % 30.6 Monocytes % 7.8 Eosinophils % 2.0 Basophils % 0.8 Absolute Neutrophils 3.2 Absolute Lymphocytes 1.7 Absolute Monocytes 0.4 Absolute Eosinophils 0.1 Absolute Basophils 0.0 Sodium 138.1 Potassium 4.1 Chloride 101 Carbon Dioxide 29 Anion Gap 8 BUN 15 Creatinine 0.60 Est GFR ( Amer) > 60 Est GFR (Non-Af Amer) > 60 Glucose 237 H Calcium 9.5 Ionized Calcium Yousuf 1.14 Total Bilirubin 0.3 AST 17 ALT 28 Alkaline Phosphatase 60 Total Protein 6.0 L Albumin 3.6 Triglycerides 219 H Cholesterol 174.80 LDL Cholesterol Direct 106 H VLDL Cholesterol 43.8 H HDL Cholesterol 33 L TSH Free T4 07/18/17 04:35 WBC RBC Hgb Hct MCV MCH MCHC RDW Plt Count Seg Neutrophils % Lymphocytes % Monocytes % Eosinophils % Basophils % Absolute Neutrophils Absolute Lymphocytes Absolute Monocytes Absolute Eosinophils Absolute Basophils Sodium Potassium Chloride Carbon Dioxide Anion Gap BUN Creatinine Est GFR ( Amer) Est GFR (Non-Af Amer) Glucose Calcium Ionized Calcium Yousuf Total Bilirubin AST ALT Alkaline Phosphatase Total Protein Albumin Triglycerides Cholesterol LDL Cholesterol Direct VLDL Cholesterol HDL Cholesterol TSH 0.26 L Free T4 1.45 Impressions: Brain MRI with MRA 07/17/17 00:00 IMPRESSION: Occluded left PROCESS CONTROL ENGINEER beyond its initial 2 cm. Carotid Doppler Study 07/17/17 00:00 IMPRESSION: NO HEMODYNAMICALLY SIGNIFICANT STENOSIS. Head MRI 07/17/17 00:00 IMPRESSION: Positive for acute or sub-acute infarction in the left occipital lobe. 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 Head CT 07/17/17 14:12 IMPRESSION: CHRONIC CHANGES OF ATROPHY AND MICROVASCULAR ISCHEMIA. DECREASED ATTENUATION IN THE LEFT OCCIPITAL LOBE CONSISTENT WITH ACUTE INFARCT. EVIDENCE OF ACUTE STROKE: YES. 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 Patient with history of paroxysmal afib on metoprolol but no eliquis. Will refer to cardiology for holter monitor. Carotid doppler with no significant occlusion. Cardiac echo has not been completed as is the weekend. Patient without any weakness of her arms or legs. Continue eliquis,baby aspirin,and high dose statin. (2) Visual field loss following cerebrovascular accident Is this a current diagnosis for this admission?: Yes Plan: Secondary to stroke. Patient currently on eliquis, aspirin and high dose statin. (4) History of gastric ulcer Is this a current diagnosis for this admission?: Yes Plan: Continue on PPI. (5) Hypercalcemia Is this a current diagnosis for this admission?: Yes Plan: Improved with IV hydration. PTH is still pending. Will discontinue IV fluids and monitor. (6) Hyperglycemia due to type 2 diabetes mellitus Is this a current diagnosis for this admission?: Yes Plan: Not well controlled with A1c of 9.5 now with stroke. Patient may need to be need to continue long acting insulin on discharge. Will increase Lantus 20units daily. At 15units blood glucoses >200s. Patient requires better control considering her acute stroke. (7) DVT prophylaxis Is this a current diagnosis for this admission?: Yes Plan: Patient on eliquis. - Time Time Spent with patient: 25-34 minutes Anticipated discharge: Home Within: within 48 hours - Inpatient Certification Medical Necessity: Need for Neurological Checks
[2017-07-18] MEDS: OMEGA-3 ACID ETHYL ESTERS 1 GM CAPSULE PO SCH ×2 (12:03→17:48)
[2017-07-18] MEDS: LISINOPRIL 10 MG TABLET PO SCH ×2 (12:04→21:14)
[2017-07-18] MEDS: NIFEDIPINE 30 MG TAB.ER.24 PO SCH (12:05)
[2017-07-18] MEDS: LEVOTHYROXINE SODIUM 0.1 MG TABLET PO SCH (12:05)
[2017-07-18] MEDS: ASPIRIN 81 MG TABLET, CHEWABLE PO SCH (12:05)
[2017-07-18] MEDS: METOPROLOL TARTRATE 25 MG TABLET PO SCH ×2 (12:06→17:47)
[2017-07-18] MEDS: TIOTROPIUM BROMIDE DPI 5 CAP/KIT (18 MCG/CAP) IH SCH (12:06)
[2017-07-18] MEDS: APIXABAN 5 MG TABLET PO SCH ×2 (12:07→17:49)
[2017-07-18] MEDS: INSULIN REG, HUMAN 100 UNIT/ML 3 ML VIAL (PYX) SUBCUT PRN ×2 (12:11→17:51)
[2017-07-18] MEDS ORDERED: METFORMIN HCL 500 MG TABLET PO ONE (12:45)
[2017-07-18] MEDS ORDERED: MORPHINE SULFATE SR 30 MG TABLET PO ONE (12:45)
[2017-07-18] MEDS: INSULIN GLARGINE,HUM.REC.ANLOG 300 UNIT/3 ML INSULN.PEN SUBCUT SCH (12:56)
[2017-07-18] MEDS: OXYCODONE HCL IR 5 MG TABLET PO PRN ×2 (12:59→20:04)
[2017-07-18] MEDS: OXYCODONE-ACETAMINOPHEN 5-325 MG TABLET PO PRN ×2 (13:00→20:05)
[2017-07-18] MEDS: METFORMIN HCL 500 MG TABLET PO SCH (17:46)
[2017-07-18] MEDS: ACETAMINOPHEN 325 MG TABLET PO PRN (17:47)
[2017-07-18] MEDS ORDERED: FATTY ACIDS PO SCH (18:00)
[2017-07-18] MEDS ORDERED: OMEGA PO SCH (18:00)
[2017-07-18] MEDS: CLONAZEPAM 1 MG TABLET PO SCH (21:16)
[2017-07-18] MEDS: MORPHINE SULFATE SR 30 MG TABLET PO SCH (21:16)
[2017-07-18] MEDS: AMITRIPTYLINE HCL 75 MG TABLET PO SCH (21:20)
[2017-07-18] MEDS ORDERED: AMITRIPTYLINE HCL 25 MG TABLET PO SCH (22:00)
[2017-07-18] MEDS ORDERED: (PENDING PHARMACY ID) (Lisinopril/Hydrochlorothiazide [Lisinopril-Hctz 20-12.5 Mg Tab] 1 T PO SCH (22:00)
[2017-07-18] MEDS ORDERED: ATORVASTATIN CALCIUM 80 MG TABLET PO SCH (22:00)
[2017-07-19 05:41] LABS: ANION GAP 7 (5-19); BLOOD UREA NITROGEN 15 mg/dL (7-20); CALCIUM 9.5 mg/dL (8.4-10.2); CARBON DIOXIDE 30 mmol/L (22-30); CHLORIDE 103 mmol/L (98-107); GLUCOSE 209 mg/dL (75-110); POTASSIUM 3.9 mmol/L (3.6-5.0); SODIUM 139.5 mmol/L (137-145)
[2017-07-19 05:51] LABS: MAGNESIUM 1.2 mg/dL (1.6-2.3)
[2017-07-19] MEDS ORDERED: LANSOPRAZOLE 30 MG TAB.RAP.DR PO SCH (06:00)
[2017-07-19] MEDS ORDERED: LEVOTHYROXINE SODIUM 0.1 MG TABLET PO SCH (06:00)
[2017-07-19] MEDS ORDERED: LEVOTHYROXINE SODIUM 0.075 MG TABLET PO SCH (06:00)
[2017-07-19] MEDS ORDERED: (PENDING PHARMACY ID) (Levothyroxine Sodium [Synthroid] 175 MCG) PO SCH (06:00)
[2017-07-19] MEDS: MAGNESIUM SULFATE 1 GM/D5W 100 ML IV SCH ×2 (06:44→07:44)
[2017-07-19] MEDS: LANSOPRAZOLE 30 MG TAB.RAP.DR PO SCH (06:45)
[2017-07-19] MEDS: METFORMIN HCL 500 MG TABLET PO SCH (07:40)
[2017-07-19] MEDS: OXYCODONE-ACETAMINOPHEN 5-325 MG TABLET PO PRN (07:40)
[2017-07-19] MEDS: OXYCODONE HCL IR 5 MG TABLET PO PRN (07:40)
[2017-07-19] MEDS: INSULIN REG, HUMAN 100 UNIT/ML 3 ML VIAL (PYX) SUBCUT PRN (07:41)
[2017-07-19 08:38] VITALS: BP 155/62
[2017-07-19] MEDS: MAGNESIUM SULFATE/D5W 1 GM/100 ML RTUPB IV SCH ×3 (09:36→09:48)
[2017-07-19] MEDS: METOPROLOL TARTRATE 25 MG TABLET PO SCH (09:37)
[2017-07-19] MEDS: LISINOPRIL 10 MG TABLET PO SCH ×2 (09:37→09:45)
[2017-07-19] MEDS: APIXABAN 5 MG TABLET PO SCH (09:37)
[2017-07-19] MEDS: OMEGA-3 ACID ETHYL ESTERS 1 GM CAPSULE PO SCH ×2 (09:37→09:45)
[2017-07-19] MEDS: CLONAZEPAM 1 MG TABLET PO SCH (09:38)
[2017-07-19] MEDS: NIFEDIPINE 30 MG TAB.ER.24 PO SCH (09:38)
[2017-07-19] MEDS: MORPHINE SULFATE SR 30 MG TABLET PO SCH (09:39)
[2017-07-19] MEDS: ASPIRIN 81 MG TABLET, CHEWABLE PO SCH (09:39)
[2017-07-19] MEDS: TIOTROPIUM BROMIDE DPI 5 CAP/KIT (18 MCG/CAP) IH SCH (09:43)
[2017-07-19] MEDS: LEVOTHYROXINE SODIUM 0.1 MG TABLET PO SCH (09:45)
[2017-07-19] MEDS: INSULIN GLARGINE,HUM.REC.ANLOG 300 UNIT/3 ML INSULN.PEN SUBCUT SCH (09:45)
[2017-07-19] MEDS ORDERED: FERROUS SULFATE 325 MG TABLET PO SCH (10:00)
[2017-07-19] MEDS ORDERED: MAGNESIUM OXIDE 400 MG TABLET PO SCH (10:00)
[2017-07-19] MEDS ORDERED: HYDROCHLOROTHIAZIDE 12.5 MG CAPSULE PO SCH ×2 (10:00)
--- NOTE | 2017-07-19 10:21 | PDOC DISCHARGE SUMMARY ---
General - Admit/Disc Date/PCP Admission Date/Primary Care Provider: 07/17/17 16:52 BETHANY BENNIE, Discharge Date: 07/19/17 - Discharge Diagnosis (1) Acute CVA (cerebrovascular accident) Is this a current diagnosis for this admission?: Yes (2) Visual field loss following cerebrovascular accident Is this a current diagnosis for this admission?: Yes (4) History of gastric ulcer Is this a current diagnosis for this admission?: Yes (5) Hypercalcemia Is this a current diagnosis for this admission?: Yes (6) Hyperglycemia due to type 2 diabetes mellitus Is this a current diagnosis for this admission?: Yes (7) DVT prophylaxis Is this a current diagnosis for this admission?: Yes - Additional Information Resuscitation Status: Full Code Discharge Diet: Cardiac, Diabetic Discharge Activity: Activity As Tolerated, Walk Frequently Prescriptions: Amlodipine Besylate [Norvasc 5 mg Tablet] 5 mg PO DAILY #30 tablet Apixaban [Eliquis 5 mg Tablet] 5 mg PO BID #60 tablet Aspirin [Aspirin 81 mg Chewable Tablet] 81 mg PO DAILY #30 tab.chew Atorvastatin Calcium [Lipitor 80 mg Tablet] 80 mg PO QHS #30 tablet Metoprolol Succinate [Toprol Xl 50 mg Tab.sr] 50 mg PO DAILY #30 tab.sr.24h Morphine Sulfate [Ms-Contin Sr 30 mg Tablet] 30 mg PO Q12 2 Days #4 tablet.sa Oxycodone HCl/Acetaminophen [Oxycodone-Acetaminophen 10-325] 1 tab PO Q6 2 Days #8 tablet Home Medications: Albuterol Sulfate [Ventolin HFA MDI 18 GM] 2 puff IH Q6HP PRN 07/17/17 Amitriptyline HCl [Elavil 25 mg Tablet] 75 mg PO QHS 07/17/17 Clonazepam [Klonopin 1 mg Tablet] 1 mg PO Q12 07/17/17 Esomeprazole Magnesium [Nexium] 40 mg PO DAILY 07/17/17 Ferrous Sulfate [Feosol 325 mg Tablet] 975 mg PO DAILY 07/17/17 Levothyroxine Sodium [Synthroid] 175 mcg PO Q6AM 07/17/17 Lisinopril/Hydrochlorothiazide [Lisinopril-Hctz 20-12.5 mg Tab] 1 tab PO Q12 Magnesium Oxide [Mag-Ox 400 mg Tablet] 400 mg PO DAILY 07/17/17 Metformin HCl [Glucophage] 1,000 mg PO BIDBS 07/17/17 Morphine Sulfate [Morphine Sulfate ER] 30 mg PO Q12 07/17/17 Alton-3 Fatty Acids [Alton-3] 2,000 mg PO BID 07/17/17 Oxycodone HCl/Acetaminophen [Oxycodone-Acetaminophen 10-325] 1 tab PO Q6 PRN Amlodipine Besylate [Norvasc 5 mg Tablet] 5 mg PO DAILY #30 tablet 07/19/17 Apixaban [Eliquis 5 mg Tablet] 5 mg PO BID #60 tablet 07/19/17 Aspirin [Aspirin 81 mg Chewable Tablet] 81 mg PO DAILY #30 tab.chew 07/19/17 Atorvastatin Calcium [Lipitor 80 mg Tablet] 80 mg PO QHS #30 tablet 07/19/17 Insulin Glargine,Hum.rec.anlog [Lantus Solostar] 40 unit SQ BID 07/19/17 Metoprolol Succinate [Toprol Xl 50 mg Tab.sr] 50 mg PO DAILY #30 tab.sr.24h Morphine Sulfate [Ms-Contin Sr 30 mg Tablet] 30 mg PO Q12 2 Days #4 tablet.sa Oxycodone HCl/Acetaminophen [Oxycodone-Acetaminophen 10-325] 1 tab PO Q6 2 Days #8 tablet 07/19/17 History of Present Illness History of Present Illness: HEIDI WEISS is a 72 year old female presented with a complaint of right eye vision change in. Patient states that she has severe headache 3 days ago and noticed that she had loss of her peripheral vision in her right eye. Apparently patient was diagnosed with A. fib several years ago. Patient is on Inderal and aspirin however she was never anticoagulated. Please refer to H&P dictated by Dr. Moy for complete details. Hospital Course Hospital Course: Patient presented with complaint of vision changes. Patient noted that she cannot see peripherally out of her right eye. CT scan did show chronic changes and decreased attenuation in the left occipital lobe consistent with acute infarct of the left CARTON STENCILER. Patient went on to have have a MRI with MRA which demonstrated occluded left CARTON STENCILER beyond its initial 2 cm. Patient also had a carotid Doppler that showed no hemodynamically significant stenosis. Unfortunately, being that is the holiday,we were unable to complete the cardiac echo. Patient will be referred to cardiology as outpatient to have this completed. Patient had no other deficits other than change in the peripheral vision of her right eye. Patient gave a history of atrial fibrillation in the past however patient was not on any anticoagulation. She was on Inderal. Patient did not have any episodes of atrial fibrillation despite being on telemetry. She will be referred to cardiology for a Holter monitor for 30 days to see if we could capture the atrial fibrillation. Nevertheless patient was started on Eliquis 5 mg p.o. twice daily along with metoprolol for her atrial fibrillation. Patient is also started on baby aspirin and high-dose statin for her stroke. Patient did have hypertensive emergency on presentation Systolic blood pressures in the 200s over 100s. Patient was complaining of having a headache. She was resumed on her home medications with the addition of Procardia 30 mg p.o. daily. Patient's blood pressures were better controlled during hospitalization. However was discharged on Norvasc instead of Procardia. Patient also has type 2 diabetes which is not well controlled. Her hemoglobin A1c is 9.5. Patient is on Lantus 60 units nightly at home along with sliding scale insulin.. She also takes metformin 1000 mg p.o. twice daily. Instructed patient to take her Lantus twice a day with an increase of 20 units. Therefore, she will be taking 40 units twice a day along with sliding scale insulin. Explained to patient that is important that her blood sugars are controlled as poorly controlled diabetes can lead to stroke and heart attack and other medical complications. Will arrange for visiting nurse to go to make sure patient is administering her medications properly as she is overwhelmed with the amount of medication she has to take. Also had hypomagnesemia of 1.2 for which she was given 3 g of magnesium. Patient is also on oral supplementation at home. She did have hypercalcemia however is improved from 10.7-9.5 with hydration. This may have been secondary to dehydration. Patient PTH is still pending. Patient should follow-up with her PCP in this regard. The patient is doing well and is ready for discharge home. Physical Exam Vital Signs: Temp Pulse Resp BP Pulse Ox 98.1 F 84 20 130/44 H 97 07/19/17 03:39 07/19/17 03:39 07/19/17 03:39 07/19/17 03:39 07/19/17 03:39 Intake & Output 07/18/17 07/19/17 07/20/17 06:59 06:59 06:59 Intake Total 1050 925 Balance 1050 925 Weight 72.3 kg 71.5 kg General appearance: PRESENT: no acute distress, disheveled, well-developed, well -nourished Head exam: PRESENT: normocephalic Eye exam: PRESENT: conjunctiva pink, EOMI, PERRLA. ABSENT: scleral icterus Ear exam: PRESENT: normal external ear exam Mouth exam: PRESENT: moist, tongue midline Neck exam: ABSENT: carotid bruit, JVD, lymphadenopathy, thyromegaly Respiratory exam: PRESENT: clear to auscultation giuliano. ABSENT: rales, rhonchi, wheezes Cardiovascular exam: PRESENT: RRR. ABSENT: diastolic murmur, rubs, systolic murmur Pulses: PRESENT: normal dorsalis pedis pul Vascular exam: PRESENT: normal capillary refill GI/Abdominal exam: PRESENT: normal bowel sounds, soft. ABSENT: distended, guarding, mass, organolmegaly, rebound, tenderness Rectal exam: PRESENT: deferred Extremities exam: PRESENT: full ROM. ABSENT: calf tenderness, clubbing, pedal edema Neurological exam: PRESENT: alert, awake, oriented to person, oriented to place , oriented to time, oriented to situation, CN II-XII grossly intact, other - No peripheral vision in her right eye.. ABSENT: motor sensory deficit Psychiatric exam: PRESENT: appropriate affect, normal mood. ABSENT: homicidal ideation, suicidal ideation Skin exam: PRESENT: dry, intact, warm. ABSENT: cyanosis, rash Results Laboratory Results: 07/18/17 04:35 07/19/17 04:08 07/19/17 04:08 Sodium 139.5 Potassium 3.9 Chloride 103 Carbon Dioxide 30 Anion Gap 7 BUN 15 Creatinine 0.73 Est GFR ( Amer) > 60 Est GFR (Non-Af Amer) > 60 Glucose 209 H Calcium 9.5 Magnesium 1.2 L* Impressions: Brain MRI with MRA 07/17/17 00:00 IMPRESSION: Occluded left CARTON STENCILER beyond its initial 2 cm. Carotid Doppler Study 07/17/17 00:00 IMPRESSION: NO HEMODYNAMICALLY SIGNIFICANT STENOSIS. Head MRI 07/17/17 00:00 IMPRESSION: Positive for acute or sub-acute infarction in the left occipital lobe. EVIDENCE OF ACUTE STROKE: Yes LEFT CARTON STENCILER Chest X-Ray 07/17/17 14:12 IMPRESSION: NO ACUTE RADIOGRAPHIC FINDING IN THE CHEST. Head CT 07/17/17 14:12 IMPRESSION: CHRONIC CHANGES OF ATROPHY AND MICROVASCULAR ISCHEMIA. DECREASED ATTENUATION IN THE LEFT OCCIPITAL LOBE CONSISTENT WITH ACUTE INFARCT. EVIDENCE OF ACUTE STROKE: YES. LEFT CARTON STENCILER Qualifiers PATEINT BEING DISCHARGED WITH ANY OF THE FOLLOWING DIAGNOSIS?: Stroke Stroke Pt being discharged on Anti-thrombolytic therapy?: Yes Stroke Pt being discharged on Anti-coagulation therapy?: Yes Stroke Pt being discharged on Statins?: Yes Plan Discharge Plan: Patient will be discharged to follow-up with cardiology for 30 day event monitor and cardiac echo. She was advised that she should be careful while driving due to the lack of her right eye peripheral vision. She was told that she must always turn her entire head to the right so that both eyes are looking in that direction and that objects in that visual field may be seen. Time Spent: Greater than 30 Minutes
== END 2017-07-19 13:00 | disposition home health service (06) | DRG 66 ==
LOC: ER 13:11 → EH 16:52 → 3N 19:22
PROVIDERS: ADMIT Emergency Medicine; ATTEND Emergency Medicine
DX: I63.8 Other cerebral infarction (principal); I48.91 Unspecified atrial fibrillation; E83.52 Hypercalcemia; E11.65 Type 2 diabetes mellitus with hyperglycemia; E83.42 Hypomagnesemia; I10 Essential (primary) hypertension; E78.5 Hyperlipidemia, unspecified; F32.9 Major depressive disorder, single episode, unspecified; Z79.84 Long term (current) use of oral hypoglycemic drugs; Z79.899 Other long term (current) drug therapy; Z87.19 Personal history of other diseases of the digestive system; Z90.49 Acquired absence of other specified parts of digestive tract; Z90.710 Acquired absence of both cervix and uterus; Z88.0 Allergy status to penicillin; Z88.7 Allergy status to serum and vaccine; Z88.8 Allergy status to other drugs, medicaments and biological substances
CPT/HCPCS: 36415; 70450; 70544; 70551; 71010; 80048; 80053; 80061; 82306; 82330; 82397; 82550; 82962; 83036; 83735; 84439; 84443; 84484; 85025; 85610; 85730; 93005; 93010; 93880; 96360; 99285; G8978-GP; G8979-GP; G8980-GP; J1815; J2060; J3475; J3490; J7030

== ENCOUNTER 2017-10-08 07:56 | Day surgery (SDC) | payer MEDICARE, MEDICAID ==
[~2017-10-08 07:56] MED LIST: CHONDR SU A NA/HYALUR INTRAOC KIT (SURGICARE) ONE; EPINEPHRINE INJ/PF 1 MG/1 ML AMPULE ONE; KETOROLAC TROMETHAMINE 0.45% 4 DROP/0.4 ML DROPERETTE OS PRN; LIDOCAINE 1% INJ-PF (10 MG/ML) 30 ML SDV ONE
[2017-10-08] MEDS: TROPICAMIDE 1% OPH SOLN 3 ML OS PRN ×3 (08:53→09:11)
[2017-10-08] MEDS: TETRACAINE HCL 0.5% OPH SOLN 2 ML OS PRN ×3 (08:53→09:22)
[2017-10-08] MEDS: BESIFLOXACIN HCL 0.6% OPH SUSP 5 ML BOTTLE OS PRN ×3 (08:53→09:44)
[2017-10-08] MEDS: CYCLOPENTOLATE 0.2%/PHENYLEPHRINE 1% OPH SOLN 2 ML OS PRN ×3 (08:53→09:11)
[2017-10-08] MEDS ORDERED: MIDAZOLAM 2 MG/2 ML INJ ONE ×2 (09:02→09:30)
[2017-10-08] MEDS ORDERED: FENTANYL CITRATE INJ/PF 100 MCG/2 ML AMPUL ONE (09:02)
--- NOTE | 2017-10-08 15:54 | [facility] OPERATIVE REPORT E ---
[facility] Operative Report NAME: HEIDI WEISS AGE: 72Y DATE OF SURGERY: 10/08/2017 ROOM: PREOPERATIVE DIAGNOSIS: CATARACT, LEFT EYE. POSTOPERATIVE DIAGNOSIS: CATARACT, LEFT EYE. OPERATION: Cataract extraction with intraocular lens implant of the left eye. SURGEON: LACEY NOBLE M.D. ANESTHESIA: Topical. PROCEDURE: After obtaining appropriate consent, the patient's left eye was prepped and draped in sterile fashion as well as the surgeon in a sterile manner and cataract surgery was started. First a paracentesis blade was used to make a small side-port incision. Viscoelastic was used to inflate the anterior chamber. Next a 2.4 mm incision was made with the paracentesis blade. A continuous capsulorrhexis incision was made using a cystotome and Utrata forceps. Following this hydrodissection was carried out to make the lens fully loose and mobile and it was rotated 90 degrees. Following this, a rcnmmu-tht-xmtnawh technique was used to phacoemulsify the lens with a CDE of 13.84. The remaining cortex was removed with irrigation/aspiration. Provisc was instilled into the capsular bag to inflate the bag. A SN60WF, 23.0 diopter lens was placed. The remaining viscoelastic material was removed with irrigation/aspiration. Following this, a 10-0 nylon suture was used to close the incision and it was found to be watertight. Vigamox was instilled in the eye and a protective shield was placed over the eye. The patient returned to the postoperative recovery in stable condition. DICTATING PHYSICIAN: LACEY NOBLE M.D. [id number] PHY#: [id number] ID: [id number] JOB#: [id number] ACCT: [id number] cc:LACEY NOBLE M.D. >
--- NOTE | 2017-10-08 15:54 | [facility] DISCHARGE SUMMARY E ---
[facility] Discharge Summary NAME: HEIDI WEISS AGE: 72Y ADMITTED: 10/08/2017 DISCHARGED: 10/08/2017 HOSPITAL COURSE: This is a 72-year-old patient who underwent cataract extraction of the left eye. DIAGNOSIS: Cataract, left eye. INDICATIONS: They underwent surgery because they were having difficulty seeing road signs. DISCHARGE INSTRUCTIONS: They is to be on a regular diet. No bending at their waist. No heavy lifting. They should use their Besivance, Ilevro, and Durezol at 3 p.m. and 8 p.m. and sleep with a rigid shield. I will see them for a 1 day postoperative tomorrow. DICTATING PHYSICIAN: LACEY NOBLE M.D. [id number] PHY#: [id number] ID: [id number] JOB#: [id number] ACCT: [id number] cc:LACEY NOBLE M.D. >
== END 2017-10-08 10:30 | disposition home or self-care (01) ==
LOC: SC 07:56
PROVIDERS: ATTEND Internal Medicine
DX: H25.813 Combined forms of age-related cataract, bilateral (principal); H40.033 Anatomical narrow angle, bilateral; H04.123 Dry eye syndrome of bilateral lacrimal glands; H43.813 Vitreous degeneration, bilateral; E11.9 Type 2 diabetes mellitus without complications; I10 Essential (primary) hypertension; E78.00 Pure hypercholesterolemia, unspecified; M19.90 Unspecified osteoarthritis, unspecified site; J44.9 Chronic obstructive pulmonary disease, unspecified; D64.9 Anemia, unspecified; R00.0 Tachycardia, unspecified; K21.9 Gastro-esophageal reflux disease without esophagitis; G62.9 Polyneuropathy, unspecified; Z88.0 Allergy status to penicillin; Z86.73 Personal history of transient ischemic attack (TIA), and cerebral infarction without residual deficits; Z79.01 Long term (current) use of anticoagulants; Z79.51 Long term (current) use of inhaled steroids; Z79.899 Other long term (current) drug therapy; Z79.84 Long term (current) use of oral hypoglycemic drugs; Z87.891 Personal history of nicotine dependence
CPT/HCPCS: 66984; 82962; V2632; J2250; J3490 ×2; A9270; J0171; J3010; 142

== ENCOUNTER 2017-10-29 08:15 | Day surgery (SDC) | payer MEDICARE, MEDICAID ==
[~2017-10-29 08:15] MED LIST changes: -CHONDR SU A NA/HYALUR INTRAOC KIT (SURGICARE) ONE; -EPINEPHRINE INJ/PF 1 MG/1 ML AMPULE ONE; +KETOROLAC TROMETHAMINE 0.45% 4 DROP/0.4 ML DROPERETTE OD PRN; -KETOROLAC TROMETHAMINE 0.45% 4 DROP/0.4 ML DROPERETTE OS PRN; -LIDOCAINE 1% INJ-PF (10 MG/ML) 30 ML SDV ONE
[2017-10-29] MEDS ORDERED: CHONDR SU A NA/HYALUR INTRAOC KIT (SURGICARE) ONE (08:38)
[2017-10-29] MEDS ORDERED: LIDOCAINE 1% INJ-PF (10 MG/ML) 30 ML SDV ONE (08:38)
[2017-10-29] MEDS ORDERED: EPINEPHRINE INJ/PF 1 MG/1 ML AMPULE ONE (08:38)
[2017-10-29] MEDS: CYCLOPENTOLATE 0.2%/PHENYLEPHRINE 1% OPH SOLN 2 ML OD PRN ×3 (08:57→09:28)
[2017-10-29] MEDS: TROPICAMIDE 1% OPH SOLN 3 ML OD PRN ×3 (08:57→09:28)
[2017-10-29] MEDS: BESIFLOXACIN HCL 0.6% OPH SUSP 5 ML BOTTLE OD PRN ×3 (08:58→10:01)
[2017-10-29] MEDS: TETRACAINE HCL 0.5% OPH SOLN 2 ML OD PRN ×3 (08:59→09:41)
[2017-10-29] MEDS ORDERED: MIDAZOLAM 2 MG/2 ML INJ ONE ×2 (09:21→09:45)
[2017-10-29] MEDS ORDERED: FENTANYL CITRATE INJ/PF 100 MCG/2 ML AMPUL ONE (09:38)
--- NOTE | 2017-10-29 19:10 | [facility] OPERATIVE REPORT E ---
[facility] Operative Report NAME: HEIDI WEISS AGE: 72Y DATE OF SURGERY: 10/29/2017 ROOM: PREOPERATIVE DIAGNOSIS: CATARACT, RIGHT EYE. POSTOPERATIVE DIAGNOSIS: CATARACT, RIGHT EYE. OPERATION: Cataract extraction with intraocular lens implant of the right eye. SURGEON: LACEY NOBLE M.D. ANESTHESIA: Topical. TISSUE REMOVED OR ALTERED: PROCEDURE: After obtaining appropriate consent, the patient's right eye was prepped and draped in sterile fashion as well as the surgeon in a sterile manner and cataract surgery was started. First a paracentesis blade was used to make a small side-port incision. Viscoelastic was used to inflate the anterior chamber. Next a 2.4 mm incision was made with the paracentesis blade. A continuous capsulorrhexis incision was made using a cystotome and Utrata forceps. Following this hydrodissection was carried out to make the lens fully loose and mobile and it was rotated 90 degrees. Following this, a cybcmh-uas-ymsnzuf technique was used to phacoemulsify the lens with a CDE of 10.97. The remaining cortex was removed with irrigation/aspiration. Provisc was instilled into the capsular bag to inflate the bag. A SN60WF, 22.5 diopter lens was placed. The remaining viscoelastic material was removed with irrigation/aspiration. Following this, a 10-0 nylon suture was used to close the incision and it was found to be watertight. Vigamox was instilled in the eye and a protective shield was placed over the eye. The patient returned to the postoperative recovery in stable condition. DICTATING PHYSICIAN: LACEY NOBLE M.D. [id number] Y#: [id number] ID: [id number] JOB#: [id number] ACCT: [id number] cc:LACEY NOBLE M.D. >
--- NOTE | 2017-10-29 19:10 | [facility] DISCHARGE SUMMARY E ---
[facility] Discharge Summary NAME: HEIDI WEISS AGE: 72Y ADMITTED: 10/29/2017 DISCHARGED: FINAL DIAGNOSIS: Cataract, right eye. HOSPITAL COURSE: This is a 72-year-old female who underwent cataract extraction of the right eye. She underwent surgery because she was having difficulty with driving at night and trouble seeing road signs. DISCHARGE INSTRUCTIONS: She should be on a regular diet. No bending at her waist, no heavy lifting. She should use Besivance, Ilevro and Durezol at 3:00 p.m. and 8:00 p.m. Sleep with a rigid shield. I will see her for a 1-day postoperative tomorrow. DICTATING PHYSICIAN: LACEY NOBLE M.D. [id number] PHY#: [id number] ID: [id number] JOB#: [id number] ACCT: [id number] cc:LACEY NOBLE M.D. >
== END 2017-10-29 10:43 | disposition home or self-care (01) ==
LOC: SC 08:15
PROVIDERS: ATTEND Internal Medicine
PROC: 08RJ3JZ Replacement of Right Lens with Synthetic Substitute, Percutaneous Approach (ICD-10-PCS; principal; 2017-10-29 10:00)
DX: H25.811 Combined forms of age-related cataract, right eye (principal); Z96.1 Presence of intraocular lens; H20.011 Primary iridocyclitis, right eye; J45.909 Unspecified asthma, uncomplicated; I10 Essential (primary) hypertension; K21.9 Gastro-esophageal reflux disease without esophagitis; E07.9 Disorder of thyroid, unspecified; E11.9 Type 2 diabetes mellitus without complications; D64.9 Anemia, unspecified; Z79.84 Long term (current) use of oral hypoglycemic drugs; Z79.899 Other long term (current) drug therapy; Z79.4 Long term (current) use of insulin; Z88.0 Allergy status to penicillin; Z79.82 Long term (current) use of aspirin; Z79.01 Long term (current) use of anticoagulants; Z88.7 Allergy status to serum and vaccine
CPT/HCPCS: 66984; 82962; V2632; J2250; J3490 ×2; A9270; J0171; J3010; 142

== ENCOUNTER → 2018-02-16 | Outpatient (CLI) | payer MEDICARE, MEDICAID ==
--- NOTE | 2018-02-16 14:55 | WOMENS IMAGING REPORT ---
EXAM DESCRIPTION: BILAT SCREENING MAMMO W/CAD COMPLETED DATE/TIME: 02/16/2018 2:24 pm REASON FOR STUDY: BILATERAL SCREENING MAMMO/Z12.31 Z12.31 ENCNTR SCREEN MAMMOGRAM FOR MALIGNANT TAMMI PLASM OF KARIE COMPARISON: None. TECHNIQUE: Standard craniocaudal and mediolateral oblique views of each breast recorded using shoppa l acquisition. LIMITATIONS: None. FINDINGS: RIGHT BREAST MASSES: No suspicious masses. CALCIFICATIONS: No new or suspicious calcifications. ARCHITECTURAL DISTORTION: None. DEVELOPING DENSITY: None. ASYMMETRY: None noted. OTHER: No other significant findings. LEFT BREAST MASSES: No suspicious masses. CALCIFICATIONS: Faint calcifications associated with developing density. ARCHITECTURAL DISTORTION: None. DEVELOPING DENSITY: Upper outer quadrant about 4 cm from the nipple. ASYMMETRY: None noted. OTHER: No other significant findings. Read with the assistance of CAD. .[facility] - R2 Cenova Version 1.3 .[facility] Imaging - R2 Cenova Version 1.3 .[facility] - R2 Cenova Version 2.4 .[facility] - R2 Cenova Version 2.4 .[facility] - R2 Lock[employer]ch Coat Joiner Version 9.2 IMPRESSION: Developing density with calcifications left breast. BREAST DENSITY: b. There are scattered areas of fibroglandular density. BIRAD: 0 Incomplete: Needs Additional Imaging Evaluation and/or prior Mammograms for Comparison. RECOMMENDATION: RECOMMENDED FOLLOW-UP: True lateral and Mag compression views potential ultrasound o f the left breast. The patient will be contacted for additional imaging. COMMENT: The patient has been notified of the results by letter per SA requirements. Additional no tification policies are in place for contacting patient with suspicious or incomplete findings. Quality ID #225: The [employer] recommends an annual screening mammogram for women aged 40 years or over. This facility utilizes a reminder system to ensure that all patients receive reminder letters, and/or direct phone calls for appointments. This includes reminders for routine scr eening mammograms, diagnostic mammograms, or other Breast Imaging Interventions when appropriate. Th is patient will be placed in the appropriate reminder system. The [employer] (ACR) has developed recommendations for screening MRI of the breast s in certain patient populations, to be used in conjunction with mammography. Breast MRI surveillanc e may be appropriate for women with more than 20% lifetime risk of developing breast cancer as deter mined by genetic testing, significant family history of the disease, or history of mantle radiation f or Hodgkins Disease. ACR Practice Guidelines 2008. TECHNICAL DOCUMENTATION: FINDING NUMBER: (1) ASSESSMENT: (1) JOB ID: [id number] [email or web address]- All Rights Reserved Reading location - IP/workstation name: [facility]-[email or web address]
== END ==
LOC: WI 13:56
PROVIDERS: ATTEND Family Medicine
DX: Z12.31 Encounter for screening mammogram for malignant neoplasm of breast (principal); R92.0 Mammographic microcalcification found on diagnostic imaging of breast
CPT/HCPCS: 77067

== ENCOUNTER → 2018-02-23 | Outpatient (CLI) | payer MEDICARE, MEDICAID ==
--- NOTE | 2018-02-23 15:06 | WOMENS IMAGING REPORT ---
EXAM DESCRIPTION: LEFT DIAGNOSTIC MAMMO W/CAD; U/S BREAST UNILAT LIMITED COMPLETED DATE/TIME: 02/23/2018 2:44 pm; 02/23/2018 2:16 pm REASON FOR STUDY: LEFT BREAST;N63.21; LEFT BREAST; N63.21 N63.0 UNSPECIFIED LUMP IN UNSPECIFIED BR EAST N63.21 UNSPECIFIED LUMP IN THE LEFT BREAST, UPPER OUTER QUAD COMPARISON: 02/16/2018. TECHNIQUE: True lateral and CC images acquired as well as compression MLO and CC images and magnific ation lateral images. LIMITATIONS: None. FINDINGS: BREAST: left MASSES: No suspicious masses. CALCIFICATIONS: There are a few round discrete benign-appearing calcifications in the inferior breast as well as a calcified oil cyst. ARCHITECTURAL DISTORTION: None. DEVELOPING DENSITY: Density in the upper-outer quadrant persists on CC image but is less discrete wit h compression and is not identified on lateral or compression MLO images. ASYMMETRY: None noted. OTHER: No other significant findings. BREAST ULTRASOUND: TECHNIQUE: Static and dynamic grayscale images acquired of the left breast in the specific areas of c linical/mammographic concern. Selected color Doppler images recorded. ELASTOGRAPHY PERFORMED: No. LIMITATIONS: None. FINDINGS: MASS: In the 12 to 1 o'clock location there is an anechoic cyst measuring 5 x 8 mm. Smooth margins w ith no internal echoes. There does appear to be an associated coarse calcification. No solid mass i dentified. Normal glandular tissue. ELASTOGRAPHY CHARACTERISTICS: Not applicable. OTHER: No other significant finding. IMPRESSION: Small cyst in the superior breast. Benign-appearing calcifications. No worrisome findi ngs. BREAST DENSITY: b. There are scattered areas of fibroglandular density. BIRAD: 2 Benign findings. RECOMMENDATION: RECOMMENDED FOLLOW UP: Birads 1 or 2: The patient should resume routine screening . SPECIFIC INTERVENTION/IMAGING/CONSULTATION RECOMMENDED:No additional intervention/ imaging/consultati on needed at this time. COMMUNICATION:The imaging findings were not discussed with the patient. Her referring provider has be en notified of the findings. COMMENT: The patient has been notified of the results by letter per MQSA requirements. Additional no tification policies are in place for contacting patient with suspicious or incomplete findings. Quality ID #225: The [employer] recommends an annual screening mammogram for women aged 40 years or over. This facility utilizes a reminder system to ensure that all patients receive reminder letters, and/or direct phone calls for appointments. This includes reminders for routine scr eening mammograms, diagnostic mammograms, or other Breast Imaging Interventions when appropriate. Th is patient will be placed in the appropriate reminder system. The [employer] (ACR) has developed recommendations for screening MRI of the breast s in certain patient populations, to be used in conjunction with mammography. Breast MRI surveillanc e may be appropriate for women with more than 20% lifetime risk of developing breast cancer as deter mined by genetic testing, significant family history of the disease, or history of mantle radiation f or Hodgkins Disease. ACR Practice Guidelines 2008. TECHNICAL DOCUMENTATION: FINDING NUMBER: (1) ASSESSMENT: (1) JOB ID: [id number] [employer]- All Rights Reserved Reading location - IP/workstation name: [facility]-RR
== END ==
LOC: WI 12:57
PROVIDERS: ATTEND Family Medicine
DX: N63.21 Unspecified lump in the left breast, upper outer quadrant (principal); N60.02 Solitary cyst of left breast
CPT/HCPCS: 76642

== ENCOUNTER 2018-03-12 17:06 | Emergency (ER) | payer OTHER, MEDICARE, MEDICAID ==
--- NOTE | 2018-03-12 18:00 | RADIOLOGY REPORT (SQ) ---
EXAM DESCRIPTION: CT HEAD WITHOUT COMPLETED DATE/TIME: 03/12/2018 5:40 pm REASON FOR STUDY: pain COMPARISON: MR 07/17/2017 CT 07/17/2017 TECHNIQUE: Axial images acquired through the brain without intravenous contrast. Images reviewed wi th bone, brain and subdural windows. Additional sagittal and coronal reconstructions were generated. Images stored on PACS. All CT scanners at this facility use dose modulation, iterative reconstruction, and/or weight based d osing when appropriate to reduce radiation dose to as low as reasonably achievable (ALARA). [facility]: Dose Right [facility]: CareDose [facility]: Dose Right [facility]: Teradose 4D [facility]: [email or web address] RADIATION DOSE: CT Rad equipment meets quality standard of care and radiation dose reduction techniq ues were employed. CTDIvol: 53.2 mGy. DLP: 964 mGy-cm. mGy. LIMITATIONS: None. FINDINGS: VENTRICLES: Normal size and contour. CEREBRUM: No masses. No hemorrhage. No midline shift. No evidence for acute infarction. Old left occipital infarct. Areas of low density in the white matter most likely chronic small vessel ischemic changes. CEREBELLUM: No masses. No hemorrhage. No alteration of density. No evidence for acute infarction. EXTRAAXIAL SPACES: No fluid collections. No masses. ORBITS AND GLOBE: No intra- or extraconal masses. Normal contour of globe without masses. CALVARIUM: No fracture. PARANASAL SINUSES: No fluid or mucosal thickening. SOFT TISSUES: No mass or hematoma. OTHER: No other significant finding. IMPRESSION: Chronic microvascular ischemic changes with no acute intracranial imaging findings. EVIDENCE OF ACUTE STROKE: NO. COMMENT: Quality ID # [id number]: Final reports with documentation of one or more dose reduction techniques (e.g., Automated exposure control, adjustment of the mA and/or kV according to patient size, use of iterative reconstruction technique) TECHNICAL DOCUMENTATION: JOB ID: [id number] [employer]- All Rights Reserved Reading location - IP/workstation name: [email or web address]
--- NOTE | 2018-03-12 18:03 | RADIOLOGY REPORT (SQ) ---
EXAM DESCRIPTION: ANKLE RIGHT COMPLETE COMPLETED DATE/TIME: 03/12/2018 5:47 pm REASON FOR STUDY: pain COMPARISON: None. NUMBER OF VIEWS: Three views. TECHNIQUE: AP, lateral, and oblique radiographic images acquired of the right ankle. LIMITATIONS: None. FINDINGS: MINERALIZATION: Normal. BONES: No acute fracture or dislocation. No worrisome bone lesions. JOINTS: No effusions. SOFT TISSUES: No soft tissue swelling. No foreign body. OTHER: No other significant finding. IMPRESSION: NEGATIVE STUDY OF THE RIGHT ANKLE. NO RADIOGRAPHIC EVIDENCE OF ACUTE INJURY. TECHNICAL DOCUMENTATION: JOB ID: [id number] [employer]- All Rights Reserved Reading location - IP/workstation name: [email or web address]
--- NOTE | 2018-03-12 18:10 | RADIOLOGY REPORT (SQ) ---
EXAM DESCRIPTION: CT CERVICAL SPINE WITHOUT COMPLETED DATE/TIME: 03/12/2018 5:40 pm REASON FOR STUDY: pain COMPARISON: None. TECHNIQUE: Axial images acquired through the cervical spine without intravenous contrast. Images re viewed with lung, soft tissue and bone windows. Reconstructed coronal and sagittal MPR images review ed. Images stored on PACS. All CT scanners at this facility use dose modulation, iterative reconstruction, and/or weight based d osing when appropriate to reduce radiation dose to as low as reasonably achievable (ALARA). [facility]: Dose Right [facility]: CareDose [facility]: Dose Right [facility]: Teradose 4D [facility]: [employer] RADIATION DOSE: CT Rad equipment meets quality standard of care and radiation dose reduction techniq ues were employed. CTDIvol: 18.0 mGy. DLP: 387 mGy-cm. mGy. LIMITATIONS: None. FINDINGS: ALIGNMENT: Anatomic. MINERALIZATION: Normal. VERTEBRAL BODIES: No fractures or dislocation. DISCS: Disc spaces are narrowed from C4 to C7 with anterior and posterior osteophytes. FACETS, LATERAL MASSES, POSTERIOR ELEMENTS: Hypertrophic facet changes are present in the mid to lowe r cervical spine. HARDWARE: None in the spine. VISUALIZED RIBS: No fractures. LUNG APICES AND SOFT TISSUES: No significant or acute findings. OTHER: No other significant finding. IMPRESSION: Degenerative disc disease. Facet arthropathy. Spondylosis. No acute findings. TECHNICAL DOCUMENTATION: JOB ID: [id number] Quality ID # [id number]: Final reports with documentation of one or more dose reduction techniques (e.g., Au tomated exposure control, adjustment of the mA and/or kV according to patient size, use of iterative reconstruction technique) 2010 [employer]- All Rights Reserved Reading location - IP/workstation name: [email or web address]
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
[2018-03-12 20:04] VITALS: BP 128/65
== END 2018-03-12 20:04 | disposition home or self-care (01) ==
LOC: ER 17:06
DX: S99.911A Unspecified injury of right ankle, initial encounter (principal); M25.471 Effusion, right ankle; V49.40XA Driver injured in collision with unspecified motor vehicles in traffic accident, initial encounter; Z79.01 Long term (current) use of anticoagulants; F17.200 Nicotine dependence, unspecified, uncomplicated; I10 Essential (primary) hypertension; J44.9 Chronic obstructive pulmonary disease, unspecified; Z88.5 Allergy status to narcotic agent; Z91.040 Latex allergy status; Z88.0 Allergy status to penicillin; Z88.7 Allergy status to serum and vaccine; E10.9 Type 1 diabetes mellitus without complications
CPT/HCPCS: 70450; 72125; 99284

== ENCOUNTER 2018-10-18 17:30 | Inpatient (IN) | payer MEDICARE, MEDICAID ==
--- NOTE | 2018-10-18 18:20 | ER Document Report ---
ED Medical Screen (RME) - General Chief Complaint: Foot Pain Stated Complaint: POSSIBLE TOE INFECTION Time Seen by Provider: 10/18/18 18:16 Primary Care Provider: BETHANY AVERY DO [Primary Care Provider] - Follow up as needed Mode of Arrival: Wheelchair Information source: Patient Notes: PT WITH HX OF DIABETES, SAW PCP LAST WEEK FOR TOE INFECTION AFTER WEARING SHOES THAT HURT HER FOOT. PT STILL ON ANTIBIOTICS BUT INFECTION IS WORSE. PCP SENT HER HERE. DR OTOOLE. INCREASED PAIN TODAY. PT IS A DIABETIC I have greeted and performed a rapid initial assessment of this patient. A comprehensive ED assessment and evaluation of the patient, analysis of test results and completion of the medical decision making process will be conducted by additional ED providers. TRAVEL OUTSIDE OF THE [place] IN LAST 30 DAYS: No - Related Data Allergies/Adverse Reactions: latex Allergy (Intermediate, Verified 10/18/18 17:53) RASH butorphanol tartrate [From Stadol] Allergy (Verified 10/18/18 17:53) Penicillins Allergy (Verified 10/18/18 17:53) Tetanus Vaccines and Toxoid [Tetanus] Allergy (Verified 10/18/18 17:53) Past Medical History - Past Medical History Cardiac Medical History: Reports: Hx Hypercholesterolemia, Hx Hypertension - MEDICATED Denies: Hx Heart Attack Pulmonary Medical History: Reports: Hx Asthma - INHALERS PRN Neurological Medical History: Reports: Hx Cerebrovascular Accident - LIGHT NO RESIDUAL, Hx Seizures - LAST ONE WHEN SHE WAS 18 Endocrine Medical History: Reports: Hx Diabetes Mellitus Type 1 Renal/ Medical History: Denies: Hx Peritoneal Dialysis GI Medical History: Denies: Hx Hepatitis, Hx Hiatal Hernia, Hx Ulcer Psychiatric Medical History: Reports: Hx Depression Infectious Medical History: Denies: Hx Hepatitis Past Surgical History: Reports: Hx Cholecystectomy, Hx Hysterectomy. Denies: Hx Mastectomy, Hx Open Heart Surgery, Hx Pacemaker - Immunizations Hx Diphtheria, Pertussis, Tetanus Vaccination: No History of Influenza Vaccine for 04/2017 - 09/2017 Season: Yes Influenza Administration Date for 04/2017 - 09/2017 Season: 04/26/17 Physical Exam - Vital signs Vitals: Temp Pulse Resp BP Pulse Ox 98 F 72 18 153/74 H 94 10/18/18 18:16 10/18/18 18:16 10/18/18 18:16 10/18/18 18:16 10/18/18 18:16 Course - Vital Signs Vital signs: Temp Pulse Resp BP Pulse Ox 98 F 72 18 153/74 H 94 10/18/18 18:16 10/18/18 18:16 10/18/18 18:16 10/18/18 18:16 10/18/18 18:16 Doctor's Discharge - Discharge Referrals: BETHANY AVERY DO [Primary Care Provider] - Follow up as needed
--- NOTE | 2018-10-18 18:47 | RADIOLOGY REPORT (SQ) ---
EXAM DESCRIPTION: FOOT LEFT COMPLETE COMPLETED DATE/TIME: 10/18/2018 6:28 pm REASON FOR STUDY: foot infection, great toe COMPARISON: None. EXAM PARAMETERS: NUMBER OF VIEWS: Three views. TECHNIQUE: AP, lateral and oblique radiographic images acquired of the left foot. LIMITATIONS: None. FINDINGS: MINERALIZATION: Osteopenia. BONES: No dislocation. Oblique lucency in the medial aspect of the base of the proximal phalanx of t he left great toe as well as the distal aspect of the 1st metatarsal, unclear if this could represent acute or chronic injury. JOINTS: No effusion. SOFT TISSUES: No significant soft tissue swelling. No radiopaque foreign body. OTHER: No other significant finding. IMPRESSION: Oblique lucency in the medial aspect of the base of the proximal phalanx of the left gre at toe as well as the distal aspect of the 1st metatarsal, unclear if this could represent acute or c hronic injury. TECHNICAL DOCUMENTATION: JOB ID: [id number] [place]-72 2010 [employer]- All Rights Reserved Reading location - IP/workstation name: [email or web address]
[2018-10-18] MEDS ORDERED: CIPROFLOXACIN HCL 500 MG TABLET PO ONE (23:23)
[2018-10-18] MEDS ORDERED: INSULIN REG, HUMAN 100 UNIT/ML 3 ML VIAL (PYX) SUBCUT ONE (23:59)
[2018-10-19 01:29] LABS: ABSOLUTE EOSINOPHILS # (AUTO) 0.1 10^3/uL (0.0-0.6); ABSOLUTE LYMPHOCYTES (AUTO) 1.2 10^3/uL (0.5-4.7); ABSOLUTE MONOCYTES (AUTO) 0.4 10^3/uL (0.1-1.4); ABSOLUTE NEUT (AUTO) 4.6 10^3/uL (1.7-8.2); BASOPHILS % (AUTO) 0.8 % (0-2); EOSINOPHILS % (AUTO) 1.8 % (0-6); HEMATOCRIT 36.7 % (36.0-47.0); HEMOGLOBIN 12.9 g/dL (12.0-15.5); MEAN CORPUSCULAR HEMOGLOBIN 31.4 pg (27.0-33.4); MEAN CORPUSCULAR HGB CONC 35.1 g/dL (32.0-36.0); MEAN CORPUSCULAR VOLUME 90 fl (80-97); MONOCYTES % (AUTO) 6.3 % (3-13); PLATELET COUNT 221 10^3/uL (150-450); RED CELL DISTRIBUTION WIDTH 13.1 % (11.5-14.0); SEGMENTED NEUTROPHILS % (AUTO) 72.1 % (42-78); TOTAL CELLS COUNTED % (AUTO) 100 %; WHITE BLOOD COUNT 6.4 10^3/uL (4.0-10.5)
[2018-10-19 01:50] LABS: ALANINE AMINOTRANSFERASE 25 U/L (9-52); ALBUMIN 4.2 g/dL (3.5-5.0); ALKALINE PHOSPHATASE 90 U/L (38-126); ANION GAP 9 (5-19); ASPARTATE AMINO TRANSFERASE 23 U/L (14-36); BILIRUBIN,DIRECT 0.2 mg/dL (0.0-0.4); BILIRUBIN,TOTAL 0.5 mg/dL (0.2-1.3); BLOOD UREA NITROGEN 17 mg/dL (7-20); CALCIUM 9.6 mg/dL (8.4-10.2); CARBON DIOXIDE 31 mmol/L (22-30); CHLORIDE 96 mmol/L (98-107); GLUCOSE 300 mg/dL (75-110); POTASSIUM 4.4 mmol/L (3.6-5.0); SODIUM 135.8 mmol/L (137-145); TOTAL PROTEIN 7.5 g/dL (6.3-8.2)
[2018-10-19] MEDS ORDERED: VANCOMYCIN HCL INJ 1000 MG VIAL IV ONE (02:17)
--- NOTE | 2018-10-19 02:21 | ER Document Report ---
ED General - General Chief Complaint: Foot Pain Stated Complaint: POSSIBLE TOE INFECTION Time Seen by Provider: 10/18/18 18:16 Mode of Arrival: Wheelchair Notes: Patient is a 73-year-old female presents with complaint of concern for tunnel infection to her left big toe. Patient says that on she saw Dr. Toby wells. She has small blister on her toe. She said that he popped the blister and placed her on antibiotics. She is placed on clindamycin. She says she has been taking clindamycin but last 24 hours she now has an ulceration to her toe with spreading redness in her toe as well as some purulent drainage. She is also had increasing pain. She is a diabetic. She says her blood sugars fluctuate. No other complaints at this time. TRAVEL OUTSIDE OF THE [place] IN LAST 30 DAYS: No - Related Data Allergies/Adverse Reactions: latex Allergy (Intermediate, Verified 10/18/18 17:53) RASH butorphanol tartrate [From Stadol] Allergy (Verified 10/18/18 17:53) Penicillins Allergy (Verified 10/18/18 17:53) Tetanus Vaccines and Toxoid [Tetanus] Allergy (Verified 10/18/18 17:53) Past Medical History - General Information source: Patient - Social History Smoking Status: Never Smoker Chew tobacco use (# tins/day): No Frequency of alcohol use: None Drug Abuse: None Family History: Reviewed & Not Pertinent Patient has suicidal ideation: No Patient has homicidal ideation: No - Past Medical History Cardiac Medical History: Reports: Hx Hypercholesterolemia, Hx Hypertension - MEDICATED Denies: Hx Heart Attack Pulmonary Medical History: Reports: Hx Asthma - INHALERS PRN Neurological Medical History: Reports: Hx Cerebrovascular Accident - LIGHT NO RESIDUAL, Hx Seizures - LAST ONE WHEN SHE WAS 18 Endocrine Medical History: Reports: Hx Diabetes Mellitus Type 1 Renal/ Medical History: Denies: Hx Peritoneal Dialysis GI Medical History: Denies: Hx Hepatitis, Hx Hiatal Hernia, Hx Ulcer Psychiatric Medical History: Reports: Hx Depression Infectious Medical History: Denies: Hx Hepatitis Past Surgical History: Reports: Hx Cholecystectomy, Hx Hysterectomy. Denies: Hx Mastectomy, Hx Open Heart Surgery, Hx Pacemaker - Immunizations Hx Diphtheria, Pertussis, Tetanus Vaccination: No Hx Pneumococcal Vaccination: 01/14/12 Review of Systems - Review of Systems Notes: My Normal Review Basic REVIEW OF SYSTEMS: CONSTITUTIONAL : Denies fever, chills, or sweats. Denies recent illness. GASTROINTESTINAL: Denies abdominal pain. Denies nausea, vomiting, or diarrhea. MUSCULOSKELETAL: Toe infection SKIN: Denies rash or skin lesions. HEMATOLOGIC : Denies easy bruising or bleeding. NEUROLOGICAL: Denies sensory or motor loss. ALL OTHER SYSTEMS REVIEWED AND NEGATIVE. Physical Exam - Vital signs Vitals: Temp Pulse Resp BP Pulse Ox 98 F 72 18 153/74 H 94 10/18/18 18:16 10/18/18 18:16 10/18/18 18:16 10/18/18 18:16 10/18/18 18:16 - Notes Notes: General Appearance: Well nourished, alert, cooperative, no acute distress, no obvious discomfort. Vitals: reviewed, See vital signs table. Eyes: PERRL, EOMI, Conjuctiva clear Lungs: No wheezing, No rales, No rhonci, No accessory muscle use, good air exchange bilaterally. Heart: Normal rate, Regular rythm, No murmur, no rub Extremities: Patient has redness and swelling to the left big toe as well as a large ulceration on the medial aspect of the toe with some purulent drainage. Mild swelling in the proximal foot. Skin: warm, dry, appropriate color, no rash Neuro: speech clear, oriented x 3, normal affect, responds appropriately to questions. Course - Re-evaluation Re-evalutation: 10/19/18 02:20 Patient has a diabetic ulceration with infection to the medial aspect big toe. Based on x-ray findings of lucency in the bone underneath I suspect this probably developed osteomyelitis. She is has worsened despite outpatient antibiotics. Therefore give a dose of Cipro to cover for Pseudomonas and vancomycin to cover for staph. I have spoken with the hospitalist, Dr. Hodges, who agrees to evaluate the patient for admission. Dictation of this chart was performed using voice recognition software; therefore, there may be some unintended grammatical errors. - Vital Signs Vital signs: Temp Pulse Resp BP Pulse Ox 98.3 F 78 18 185/84 H 97 10/19/18 03:26 10/19/18 03:26 10/19/18 03:26 10/19/18 03:26 10/19/18 03:26 - Laboratory Result Diagrams: 10/19/18 01:12 10/19/18 01:12 Laboratory results interpreted by me: 10/18/18 10/19/18 23:52 01:12 Sodium 135.8 L Chloride 96 L Carbon Dioxide 31 H Glucose 300 H POC Glucose 329 H Discharge - Discharge Clinical Impression: Toe infection Condition: Stable Disposition: ADMITTED INPATIENT Admitting Provider: Hospitalist Unit Admitted: Medical Floor
[2018-10-19] MEDS ORDERED: MAGNESIUM HYDROXIDE SUSP 30 ML UDCUP PO PRN (02:24)
[2018-10-19] MEDS ORDERED: MAG HYDROX/AL HYDROX/SIMETH SUSP 30 ML UDCUP PO PRN (02:24)
[2018-10-19] MEDS ORDERED: GLUCAGON,HUMAN RECOMB 1 MG INJ IM PRN (02:24)
[2018-10-19] MEDS ORDERED: IPRATROPIUM/ALBUTEROL 0.5-2.5 MG/3 ML AMPUL NEB PRN (02:24)
[2018-10-19] MEDS ORDERED: DEXTROSE 50%-WATER 25 GM/50 ML DISP.SYRIN IV PRN ×4 (02:24→07:07)
[2018-10-19] MEDS ORDERED: DEXTROSE 40% GEL 15 GM TUBE PO PRN ×4 (02:24→07:07)
[2018-10-19] MEDS ORDERED: KETOROLAC TROMETHAMINE INJ/PF 30 MG/1 ML SDV IV PRN (02:28)
[2018-10-19] MEDS ORDERED: BESIFLOXACIN HCL 0.6% OPH SUSP 5 ML BOTTLE OP SCH (02:30)
[2018-10-19] MEDS ORDERED: NORMAL SALINE 1000 ML 1,000 ML IV PRN (02:30)
[2018-10-19] MEDS ORDERED: VANCOMYCIN HCL 0 MG in DEXTROSE 5%-WATER 250 ML IV NR (02:30)
[2018-10-19] MEDS ORDERED: INSULIN GLARGINE,HUM.REC.ANLOG 1,000 UNIT/10 ML VIAL (PYX) SUBCUT PRN (02:41)
[2018-10-19] MEDS ORDERED: VANCOMYCIN HCL INJ 1000 MG VIAL IV PRN (02:50)
[2018-10-19] MEDS ORDERED: APIXABAN 5 MG TABLET PO ONE (03:00)
[2018-10-19] MEDS ORDERED: AMITRIPTYLINE HCL 25 MG TABLET PO ONE (03:00)
[2018-10-19] MEDS ORDERED: CLONAZEPAM 1 MG TABLET PO ONE (03:00)
[2018-10-19] MEDS ORDERED: INSULIN GLARGINE,HUM.REC.ANLOG 1,000 UNIT/10 ML VIAL SUBCUT ONE (03:00)
[2018-10-19] MEDS ORDERED: ATORVASTATIN CALCIUM 80 MG TABLET PO ONE (03:00)
[2018-10-19] MEDS ORDERED: VANCOMYCIN HCL 1,000 MG in DEXTROSE 5%-WATER 250 ML IV ONE (03:30)
--- NOTE | 2018-10-19 04:29 | PDOC H&P ---
History of Present Illness Admission Date/PCP: 10/19/18 02:27 PARMINDER MG MD Patient complains of: Left great toe pain and swelling. History of Present Illness: HEIDI WEISS is a 73 year old female with a past medical history of diabetes, paroxysmal atrial fibrillation, asthma, hypertension, dyslipidemia, depression and opiate dependent chronic pain. She presents to the emergency department after 10 days of erythema and pain to her left great toe occurring after wearing new shoes. She is prompted to follow-up with her primary care and was prescribed clindamycin without significant improvement she returns to her primary care and was referred to the emergency department for evaluation. An x- ray of the foot is concerning for osteomyelitis with an oblique lucency in the medial aspect of the base of the proximal phalanx in addition to the first met atarsal. She started on empiric antibiotics and referred to the hospitalist for admission. Patient denies previous foot ulcer or prolonged uncontrolled diabetes. She otherwise denies diarrhea and feels well. Past Medical History Cardiac Medical History: Reports: Hyperlipidema, Hypertension - MEDICATED Denies: Myocardial Infarction Pulmonary Medical History: Reports: Asthma - INHALERS PRN Neurological Medical History: Reports: Seizures - LAST ONE WHEN SHE WAS 18 Endocrine Medical History: Reports: Diabetes Mellitus Type 1 GI Medical History: Denies: Hepatitis, Hiatal Hernia Psychiatric Medical History: Reports: Depression Hematology: Reports: Anemia Denies: Sickle Cell Disease Past Surgical History Past Surgical History: Reports: Cholecystectomy, Hysterectomy Denies: Amputation, Mastectomy, Pacemaker Social History Information Source: Patient, [facility] Records Smoking Status: Never Smoker Frequency of Alcohol Use: None Hx Recreational Drug Use: No Drugs: None Hx Prescription Drug Abuse: No - Advance Directive Resuscitation Status: Full Code Family History Family History: DM Parental Family History Reviewed: Yes Children Family History Reviewed: Yes Sibling(s) Family History Reviewed.: Yes Medication/Allergy Home Medications: Albuterol Sulfate [Ventolin HFA MDI 18 GM] 2 puff IH Q6HP PRN 07/17/17 Amitriptyline HCl [Elavil 25 mg Tablet] 75 mg PO QHS 07/17/17 Clonazepam [Klonopin 1 mg Tablet] 1 mg PO Q12 07/17/17 Esomeprazole Magnesium [Nexium] 40 mg PO DAILY 07/17/17 Ferrous Sulfate [Feosol 325 mg Tablet] 975 mg PO DAILY 07/17/17 Levothyroxine Sodium [Synthroid] 175 mcg PO Q6AM 07/17/17 Lisinopril/Hydrochlorothiazide [Lisinopril-Hctz 20-12.5 mg Tab] 1 tab PO Q12 07/17/17 Magnesium Oxide [Mag-Ox 400 mg Tablet] 400 mg PO DAILY 07/17/17 Metformin HCl [Glucophage] 1,000 mg PO BIDBS 07/17/17 [place]-3 Fatty Acids [Bickmore-3] 2,000 mg PO BID 07/17/17 Oxycodone HCl/Acetaminophen [Oxycodone-Acetaminophen 10-325] 1 tab PO Q6 PRN 07/18/17 Amlodipine Besylate [Norvasc 5 mg Tablet] 5 mg PO DAILY #30 tablet 07/19/17 Apixaban [Eliquis 5 mg Tablet] 5 mg PO BID #60 tablet 07/19/17 Aspirin [Aspirin 81 mg Chewable Tablet] 81 mg PO DAILY #30 tab.chew 07/19/17 Atorvastatin Calcium [Lipitor 80 mg Tablet] 80 mg PO QHS #30 tablet 07/19/17 Insulin Glargine,Hum.rec.anlog [Lantus Solostar] 40 unit SQ BID 07/19/17 Metoprolol Succinate [Toprol Xl 50 mg Tab.sr] 50 mg PO DAILY #30 tab.sr.24h 07/19/17 Morphine Sulfate [Ms-Contin Sr 30 mg Tablet] 30 mg PO Q12 2 Days #4 tablet.sa Besifloxacin HCl [Besivance 0.6% Oph Susp 5 ml] 1 drop OP ASDIR 10/29/17 Difluprednate [Durezol] 1 drop OP ASDIR 10/29/17 Nepafenac [Ilevro] 1 drop OP ASDIR 10/29/17 Diclofenac Sodium [Voltaren] 4 gm TP TID PRN #100 gel..gram. 03/12/18 Allergies/Adverse Reactions: latex Allergy (Intermediate, Verified 10/18/18 17:53) RASH butorphanol tartrate [From Stadol] Allergy (Verified 10/18/18 17:53) Penicillins Allergy (Verified 10/18/18 17:53) Tetanus Vaccines and Toxoid [Tetanus] Allergy (Verified 10/18/18 17:53) Review of Systems Constitutional: ABSENT: chills, fever(s), headache(s), weight gain, weight loss Eyes: ABSENT: visual disturbances Ears: ABSENT: hearing changes Cardiovascular: ABSENT: chest pain, dyspnea on exertion, edema, orthropnea, palpitations Respiratory: ABSENT: cough, hemoptysis Gastrointestinal: ABSENT: abdominal pain, constipation, diarrhea, hematemesis, hematochezia, nausea, vomiting Genitourinary: ABSENT: dysuria, hematuria Musculoskeletal: ABSENT: joint swelling Integumentary: ABSENT: rash, wounds Neurological: ABSENT: abnormal gait, abnormal speech, confusion, dizziness, focal weakness, syncope Psychiatric: ABSENT: anxiety, depression, homidical ideation, suicidal ideation Endocrine: ABSENT: cold intolerance, heat intolerance, polydipsia, polyuria Hematologic/Lymphatic: ABSENT: easy bleeding, easy bruising Physical Exam Vital Signs: Temp Pulse Resp BP Pulse Ox 98.3 F 78 18 185/84 H 97 10/19/18 03:26 10/19/18 03:26 10/19/18 03:26 10/19/18 03:26 10/19/18 03:26 Intake & Output 10/17/18 10/18/18 10/19/18 11:59 11:59 11:59 Weight 72.7 kg General appearance: PRESENT: no acute distress, cooperative, well-developed, well-nourished Head exam: PRESENT: atraumatic, normocephalic Eye exam: PRESENT: conjunctiva pink, EOMI, PERRLA. ABSENT: scleral icterus Ear exam: PRESENT: normal external ear exam Mouth exam: PRESENT: moist, tongue midline Neck exam: ABSENT: carotid bruit, JVD, lymphadenopathy, thyromegaly Respiratory exam: PRESENT: clear to auscultation giuliano. ABSENT: rales, rhonchi, wheezes Cardiovascular exam: PRESENT: RRR. ABSENT: diastolic murmur, rubs, systolic murmur Pulses: PRESENT: normal dorsalis pedis pul Vascular exam: PRESENT: normal capillary refill GI/Abdominal exam: PRESENT: normal bowel sounds, soft. ABSENT: distended, guarding, mass, organolmegaly, rebound, tenderness Rectal exam: PRESENT: deferred Extremities exam: PRESENT: full ROM, other - Left great toe erythema and pain with ulcer.. ABSENT: calf tenderness, clubbing, pedal edema Neurological exam: PRESENT: alert, awake, oriented to person, oriented to place, oriented to time, oriented to situation, CN II-XII grossly intact. ABSENT: motor sensory deficit Psychiatric exam: PRESENT: appropriate affect, normal mood. ABSENT: homicidal ideation, suicidal ideation Skin exam: PRESENT: dry, intact, warm. ABSENT: cyanosis, rash Results Laboratory Results: 10/19/18 01:12 10/19/18 01:12 10/19/18 10/19/18 01:12 01:12 WBC 6.4 RBC 4.10 Hgb 12.9 Hct 36.7 MCV 90 MCH 31.4 MCHC 35.1 RDW 13.1 Plt Count 221 Seg Neutrophils % 72.1 Lymphocytes % 19.0 Monocytes % 6.3 Eosinophils % 1.8 Basophils % 0.8 Absolute Neutrophils 4.6 Absolute Lymphocytes 1.2 Absolute Monocytes 0.4 Absolute Eosinophils 0.1 Absolute Basophils 0.0 Sodium 135.8 L Potassium 4.4 Chloride 96 L Carbon Dioxide 31 H Anion Gap 9 BUN 17 Creatinine 0.61 Est GFR ( Amer) > 60 Est GFR (Non-Af Amer) > 60 Glucose 300 H Calcium 9.6 Total Bilirubin 0.5 AST 23 ALT 25 Alkaline Phosphatase 90 Total Protein 7.5 Albumin 4.2 Impressions: Foot X-Ray 10/18/18 18:19 IMPRESSION: Oblique lucency in the medial aspect of the base of the proximal phalanx of the left great toe as well as the distal aspect of the 1st metatarsal, unclear if this could represent acute or chronic injury. Assessment and Plan - Diagnosis (1) Toe osteomyelitis, left Is this a current diagnosis for this admission?: Yes Plan: Empiric vancomycin and ciprofloxacin ordered. Follow-up surgical consult, CBC and blood culture. (2) Diabetic foot ulcer Is this a current diagnosis for this admission?: Yes Plan: Empiric antibiotics initiated, follow-up surgical consult, A1c, CBC and blood culture (3) Diabetes Is this a current diagnosis for this admission?: Yes Plan: Outpatient regiment with Humalog sliding scale, hold metformin, follow-up insulin requirement and A1c. - Time Time Spent with patient: 25-34 minutes - Inpatient Certification Medical Necessity: Need Close Monitoring Due to Risk of Patient Decompensation
[2018-10-19] MEDS ORDERED: GLUCAGON,HUMAN RECOMB 1 MG INJ SUBCUT PRN (07:07)
--- NOTE | 2018-10-19 09:46 | PDOC CONSULTATION ---
History of Present Illness Admission Date/PCP: 10/19/18 02:27 PARMINDER MG MD Patient complains of: Left great toe pain History of Present Illness: HEIDI WEISS is a 73 year old female diabetic who tried a new pair shoes last week and subsequently developed a blister overlying the dorsum of her left great toe. She was seen by her primary care physician who popped the blister. Over the next several days she developed erythema and swelling. No fever. No history of trauma. Prior to trying on the new shoes last week she had no problems with her foot. Past Medical History Cardiac Medical History: Reports: Hyperlipidema, Hypertension - MEDICATED Denies: Myocardial Infarction Pulmonary Medical History: Reports: Asthma - INHALERS PRN Neurological Medical History: Reports: Seizures - LAST ONE WHEN SHE WAS 18 Neurological History Note: History of a stroke couple of years ago from which she completely recovered. Uncertain of etiology. She has been on blood thinners ever since. Endocrine Medical History: Reports: Diabetes Mellitus Type 1 GI Medical History: Denies: Hepatitis, Hiatal Hernia Psychiatric Medical History: Reports: Depression Hematology: Reports: Anemia Denies: Sickle Cell Disease Past Surgical History Past Surgical History: Reports: Cholecystectomy, Hysterectomy Denies: Amputation, Mastectomy, Pacemaker Social History Smoking Status: Former Smoker - Quit when she was 25 Frequency of Alcohol Use: None Hx Recreational Drug Use: No Drugs: None Hx Prescription Drug Abuse: No - Advance Directive Resuscitation Status: Full Code Family History Family History: Reviewed & Not Pertinent Parental Family History Reviewed: No Children Family History Reviewed: No Sibling(s) Family History Reviewed.: No Medication/Allergy Home Medications: Albuterol Sulfate [Proair HFA Inhalation Aerosol 8.5 gm MDI] 2 puff IH Q4HP PRN 10/19/18 Amitriptyline HCl [Elavil 25 mg Tablet] 75 mg PO QHS 10/19/18 Amlodipine Besylate [Norvasc 5 mg Tablet] 5 mg PO DAILY 10/19/18 Apixaban [Eliquis 5 mg Tablet] 5 mg PO BID 10/19/18 Atorvastatin Calcium [Lipitor 80 mg Tablet] 80 mg PO QHS 10/19/18 Calcium Carbonate 500 mg PO DAILY 10/19/18 Cholecalciferol (Vitamin D3) [Vitamin D3 1000 Unit Tablet] 1,000 unit PO DAILY 10/19/18 Clonazepam [Klonopin 1 mg Tablet] 1 mg PO Q8 10/19/18 Cyanocobalamin (Vitamin B-12) [Vitamin B-12 1000 mcg Tablet] 1,000 mcg PO DAILY 10/19/18 Esomeprazole Mag Trihydrate [Nexium] 40 mg PO DAILY 10/19/18 Ferrous Sulfate [Feosol 325 mg Tablet] 975 mg PO DAILY 10/19/18 Hydralazine HCl [Apresoline 50 mg Tablet] 50 mg PO Q8 10/19/18 Insulin Aspart [Novolog Flexpen] 6 units SQ MEALS 10/19/18 Insulin Glargine,Hum.rec.anlog [Lantus Insulin 100 Unit/1 ml 10 ml] 20 units SQ Q12 10/19/18 Levothyroxine Sodium [Synthroid 0.15 mg Tablet] 0.15 mg PO Q6AM 10/19/18 Lisinopril/Hydrochlorothiazide [Zestoretic 20-12.5 mg Tablet] 1 tab PO BID 10/19/18 Magnesium Oxide [Mag-Ox 400 mg Tablet] 400 mg PO DAILY 10/19/18 Metformin HCl [Glucophage] 1,000 mg PO BID 10/19/18 Metoprolol Succinate [Toprol XL 100 mg Tablet] 100 mg PO DAILY 10/19/18 [place]-3 Acid Ethyl Esters [Lovaza 1 gm Capsule] 2 gm PO BID 10/19/18 Oxycodone HCl 15 mg PO Q6HP PRN 10/19/18 Allergies/Adverse Reactions: latex Allergy (Intermediate, Verified 10/18/18 17:53) RASH butorphanol tartrate [From Stadol] Allergy (Verified 10/18/18 17:53) Penicillins Allergy (Verified 10/18/18 17:53) Tetanus Vaccines and Toxoid [Tetanus] Allergy (Verified 10/18/18 17:53) Physical Exam Vital Signs: Temp Pulse Resp BP Pulse Ox 98.3 F 86 16 173/72 H 95 10/19/18 07:53 10/19/18 09:08 10/19/18 09:08 10/19/18 07:53 10/19/18 09:08 Intake & Output 10/18/18 10/19/18 10/20/18 06:59 06:59 06:59 Weight 72.7 kg General appearance: PRESENT: no acute distress, cooperative Respiratory exam: PRESENT: clear to auscultation giuliano Cardiovascular exam: PRESENT: RRR Pulses: PRESENT: +2 pedal pulses bilateral GI/Abdominal exam: PRESENT: other - Soft, nondistended, nontender to palpation. Extremities exam: PRESENT: other - No abnormalities of the right foot noted. Left foot with left great toe erythema with the dorsum with a region of exudate but no underlying fluctuance consistent with an infected blister that has now lost his covering. Minimal tenderness. Minimal swelling. Patient notes that the swelling has substantially decreased since admission. Results Laboratory Results: 10/19/18 01:12 10/19/18 01:12 10/19/18 10/19/18 01:12 01:12 WBC 6.4 RBC 4.10 Hgb 12.9 Hct 36.7 MCV 90 MCH 31.4 MCHC 35.1 RDW 13.1 Plt Count 221 Seg Neutrophils % 72.1 Lymphocytes % 19.0 Monocytes % 6.3 Eosinophils % 1.8 Basophils % 0.8 Absolute Neutrophils 4.6 Absolute Lymphocytes 1.2 Absolute Monocytes 0.4 Absolute Eosinophils 0.1 Absolute Basophils 0.0 Sodium 135.8 L Potassium 4.4 Chloride 96 L Carbon Dioxide 31 H Anion Gap 9 BUN 17 Creatinine 0.61 Est GFR ( Amer) > 60 Est GFR (Non-Af Amer) > 60 Glucose 300 H Calcium 9.6 Total Bilirubin 0.5 AST 23 ALT 25 Alkaline Phosphatase 90 Total Protein 7.5 Albumin 4.2 Impressions: Foot X-Ray 10/18/18 18:19 IMPRESSION: Oblique lucency in the medial aspect of the base of the proximal phalanx of the left great toe as well as the distal aspect of the 1st metatarsal, unclear if this could represent acute or chronic injury. Assessment & Plan - Diagnosis (1) Toe infection Is this a current diagnosis for this admission?: Yes Plan: Left great toe infection likely due to infected blister in the past. I have reviewed the film with the radiologist and the linear abnormality described by radiologist last night appears to be an artifact. It certainly does not appear to be osteomyelitis. It does not appear to be a fracture. I do not think she needs any debridement at this point. It appears to be improving on antibiotics alone. Surgical service will continue to follow closely.
[2018-10-19] MEDS ORDERED: INSULIN GLARGINE,HUM.REC.ANLOG 1,000 UNIT/10 ML VIAL (PYX) SUBCUT ONE (10:07)
[2018-10-19] MEDS: MORPHINE SULFATE SR 30 MG TABLET PO SCH ×2 (10:15→21:15)
[2018-10-19] MEDS: DOCUSATE SODIUM 100 MG CAPSULE PO SCH ×2 (10:16→17:04)
[2018-10-19] MEDS: ASPIRIN 81 MG TABLET, CHEWABLE PO SCH (10:16)
[2018-10-19] MEDS: CLONAZEPAM 1 MG TABLET PO SCH ×2 (10:17→21:15)
[2018-10-19] MEDS: APIXABAN 5 MG TABLET PO SCH ×2 (10:17→18:19)
[2018-10-19] MEDS: AMLODIPINE BESYLATE 5 MG TABLET PO SCH (10:17)
[2018-10-19] MEDS: MAGNESIUM OXIDE 400 MG TABLET PO SCH (10:17)
[2018-10-19] MEDS: METOPROLOL SUCCINATE 50 MG TAB.SR.24H PO SCH (10:17)
[2018-10-19] MEDS: CIPROFLOXACIN 400 MG/D5W RTU 400 MG/200 ML RTUPB IV SCH ×2 (10:18→21:17)
[2018-10-19] MEDS: INSULIN LISPRO 100 UNIT/ML 3 ML VIAL SUBCUT SCH ×3 (10:26→18:21)
[2018-10-19] MEDS: INSULIN GLARGINE,HUM.REC.ANLOG 1,000 UNIT/10 ML VIAL SUBCUT SCH ×2 (10:27→18:24)
[2018-10-19] MEDS: VANCOMYCIN HCL 1,000 MG in DEXTROSE 5%-WATER 250 ML IV SCH ×2 (11:33→22:57)
[2018-10-19] MEDS ORDERED: LORAZEPAM INJ 2 MG/1 ML VIAL IV PRN (14:00)
--- NOTE | 2018-10-19 16:42 | Progress Note ---
Provider Note Provider Note: This is a 73 years old female patient with past medical history of hypertension, hyperlipidemia, diabetes mellitus, paroxysmal atrial fibrillation, bronchial asthma and opiate dependent presented with chief complaint of left great toe pain. Patient found to have cellulitis. Surgical consultation made and she is evaluated by Dr. Valdes who recommended medical management. Her hemoglobin A1c is 9.5 which reflects her that her diabetes is not well controlled. I requested MRI of the involved foot. I seen patient and reviewed her lab. Accept this patient and I will be her primary attending.
--- NOTE | 2018-10-19 18:31 | RADIOLOGY REPORT (SQ) ---
EXAM DESCRIPTION: MRI LT LOWER EXTREMITY WITHOUT COMPLETED DATE/TIME: 10/19/2018 6:03 pm REASON FOR STUDY: pain, cellulitis, infection COMPARISON: Knee radiograph 10/18/2017 TECHNIQUE: Multiplanar, multisequence noncontrast MRI of the left forefoot was obtained. . LIMITATIONS: None. FINDINGS: Bones: Bone marrow signal is normal. No fracture line. No bone marrow edema. Soft tissues: Visualized tendons of the anterior, medial and lateral ankle are intact. LisFranc lig ament is intact. Mild diffuse edema within the subcutaneous fat and muscles of the forefoot. No foc al fluid collection. Miscellaneous: No full-thickness articular cartilage defect. No joint effusion. IMPRESSION: 1. No findings to suggest osteomyelitis. 2. Nonspecific abnormal signal of the soft tissues of the forefoot which may represent soft tissue ed clinton versus cellulitis. No focal fluid collection. TECHNICAL DOCUMENTATION: JOB ID: [id number] [employer]- All Rights Reserved Reading location - IP/workstation name: [email or web address]
[2018-10-19] MEDS: AMITRIPTYLINE HCL 25 MG TABLET PO SCH (21:15)
[2018-10-19] MEDS: ATORVASTATIN CALCIUM 80 MG TABLET PO SCH (21:15)
[2018-10-20 07:52] LABS: ABSOLUTE EOSINOPHILS # (AUTO) 0.1 10^3/uL (0.0-0.6); ABSOLUTE LYMPHOCYTES (AUTO) 1.3 10^3/uL (0.5-4.7); ABSOLUTE MONOCYTES (AUTO) 0.5 10^3/uL (0.1-1.4); BASOPHILS % (AUTO) 0.5 % (0-2); EOSINOPHILS % (AUTO) 2.1 % (0-6); HEMATOCRIT 34.8 % (36.0-47.0); HEMOGLOBIN 12.5 g/dL (12.0-15.5); LYMPHOCYTES % (AUTO) 22.2 % (13-45); MEAN CORPUSCULAR HEMOGLOBIN 31.7 pg (27.0-33.4); MEAN CORPUSCULAR HGB CONC 35.9 g/dL (32.0-36.0); MEAN CORPUSCULAR VOLUME 88 fl (80-97); MONOCYTES % (AUTO) 8.5 % (3-13); PLATELET COUNT 207 10^3/uL (150-450); RED BLOOD COUNT 3.95 10^6/uL (3.72-5.28); RED CELL DISTRIBUTION WIDTH 12.9 % (11.5-14.0); SEGMENTED NEUTROPHILS % (AUTO) 66.7 % (42-78); TOTAL CELLS COUNTED % (AUTO) 100 %
[2018-10-20 08:14] LABS: ANION GAP 8 (5-19); BLOOD UREA NITROGEN 15 mg/dL (7-20); CALCIUM 9.7 mg/dL (8.4-10.2); CARBON DIOXIDE 28 mmol/L (22-30); CHLORIDE 102 mmol/L (98-107); GLUCOSE 182 mg/dL (75-110); POTASSIUM 3.9 mmol/L (3.6-5.0); SODIUM 138.2 mmol/L (137-145)
[2018-10-20] MEDS: INSULIN LISPRO 100 UNIT/ML 3 ML VIAL SUBCUT SCH ×3 (09:06→18:19)
[2018-10-20] MEDS: VANCOMYCIN HCL 1,000 MG in DEXTROSE 5%-WATER 250 ML IV SCH (09:07)
[2018-10-20] MEDS: MORPHINE SULFATE SR 30 MG TABLET PO SCH ×2 (09:13→23:13)
[2018-10-20] MEDS: METOPROLOL SUCCINATE 50 MG TAB.SR.24H PO SCH (09:15)
[2018-10-20] MEDS: APIXABAN 5 MG TABLET PO SCH ×2 (09:15→18:20)
[2018-10-20] MEDS: AMLODIPINE BESYLATE 5 MG TABLET PO SCH (09:15)
[2018-10-20] MEDS: MAGNESIUM OXIDE 400 MG TABLET PO SCH (09:16)
[2018-10-20] MEDS: ASPIRIN 81 MG TABLET, CHEWABLE PO SCH (09:16)
[2018-10-20] MEDS: CLONAZEPAM 1 MG TABLET PO SCH ×2 (09:16→23:14)
[2018-10-20] MEDS: CIPROFLOXACIN 400 MG/D5W RTU 400 MG/200 ML RTUPB IV SCH (09:18)
[2018-10-20] MEDS: DOCUSATE SODIUM 100 MG CAPSULE PO SCH ×2 (09:19→18:20)
[2018-10-20] MEDS: INSULIN GLARGINE,HUM.REC.ANLOG 1,000 UNIT/10 ML VIAL SUBCUT SCH ×2 (10:33→23:15)
[2018-10-20] MEDS: OXYCODONE-ACETAMINOPHEN 5-325 MG TABLET PO PRN ×2 (11:41→20:01)
[2018-10-20] MEDS: CLINDAMYCIN 600 MG/D5W RTU 600 MG/50 ML RTUPB IV SCH ×2 (11:43→18:18)
--- NOTE | 2018-10-20 14:17 | PDOC PROGRESS REPORT ---
Subjective Progress Note for:: 10/20/18 Subjective:: This is a 73 years old female patient with past medical history of hypertension, hyperlipidemia, diabetes mellitus, paroxysmal atrial fibrillation, bronchial asthma and opiate dependent presented with chief complaint of left great toe pain. Patient found to have cellulitis. Surgical consultation made and she is evaluated by Dr. Valdes who recommended medical management. Her hemoglobin A1c is 9.5 which reflects her that her diabetes is not well co ntrolled. MRI of the foot reported as no sign of osteomyelitis. Her wound culture grew group C beta-hemolytic Streptococcus, so I discontinued vancomycin and Cipro and switched her to clindamycin since patient is allergic to penicillin. Morning I seen patient resting in bed comfortably she is not in pain or distress. Her vital signs are within normal limits. Reason For Visit: TOE OSTEO DM, CHRONIC PAIN Physical Exam Vital Signs: Temp Pulse Resp BP Pulse Ox 97.7 F 85 16 154/74 H 95 10/20/18 07:37 10/20/18 08:20 10/20/18 08:20 10/20/18 07:37 10/20/18 08:20 Intake & Output 10/19/18 10/20/18 10/21/18 06:59 06:59 06:59 Intake Total 2922 50 Output Total 725 Balance 2197 50 Weight 72.7 kg 72.2 kg General appearance: PRESENT: no acute distress Head exam: PRESENT: atraumatic Eye exam: PRESENT: conjunctiva pink Mouth exam: PRESENT: moist Neck exam: ABSENT: carotid bruit, JVD, lymphadenopathy, thyromegaly Respiratory exam: PRESENT: clear to auscultation giuliano. ABSENT: rales, rhonchi, wheezes Cardiovascular exam: PRESENT: RRR. ABSENT: diastolic murmur, rubs, systolic murmur GI/Abdominal exam: PRESENT: normal bowel sounds, soft. ABSENT: distended, g uarding, mass, organolmegaly, rebound, tenderness Neurological exam: PRESENT: alert, awake, oriented to time, oriented to situation Psychiatric exam: PRESENT: normal mood Results Laboratory Results: 10/20/18 06:50 10/20/18 06:50 10/20/18 10/20/18 06:50 06:50 WBC 6.0 RBC 3.95 Hgb 12.5 Hct 34.8 L MCV 88 MCH 31.7 MCHC 35.9 RDW 12.9 Plt Count 207 Seg Neutrophils % 66.7 Lymphocytes % 22.2 Monocytes % 8.5 Eosinophils % 2.1 Basophils % 0.5 Absolute Neutrophils 4.0 Absolute Lymphocytes 1.3 Absolute Monocytes 0.5 Absolute Eosinophils 0.1 Absolute Basophils 0.0 Sodium 138.2 Potassium 3.9 Chloride 102 Carbon Dioxide 28 Anion Gap 8 BUN 15 Creatinine 0.67 Est GFR ( Amer) > 60 Est GFR (Non-Af Amer) > 60 Glucose 182 H Calcium 9.7 Impressions: Foot X-Ray 10/18/18 18:19 IMPRESSION: Oblique lucency in the medial aspect of the base of the proximal phalanx of the left great toe as well as the distal aspect of the 1st metatarsal, unclear if this could represent acute or chronic injury. Lower Extremity MRI 10/19/18 00:00 IMPRESSION: 1. No findings to suggest osteomyelitis. 2. Nonspecific abnormal signal of the soft tissues of the forefoot which may represent soft tissue edema versus cellulitis. No focal fluid collection. Assessment and Plan - Diagnosis (1) Left big toe cellulitis Is this a current diagnosis for this admission?: Yes Plan: MRI of the involved foot is negative for osteomyelitis. Wound culture positive for group C beta-hemolytic streptococci. Vancomycin and Cipro discontinued and patient switched to clindamycin. (2) Type 2 diabetes mellitus Is this a current diagnosis for this admission?: Yes Plan: Not well controlled reflected on her hemoglobin A1c which is 9.6. We will reinforce diabetic education and adjust her meds. (3) Paroxysmal atrial fibrillation Is this a current diagnosis for this admission?: Yes Plan: Rate controlled. Continue her home medication. (4) Hypertension Qualifiers: Hypertension type: essential hypertension Qualified Code(s): I10 - Essential (primary) hypertension Is this a current diagnosis for this admission?: Yes Plan: Continue home med (5) Hyperlipidemia Qualifiers: Hyperlipidemia type: unspecified Qualified Code(s): E78.5 - Hyperlipidemia, unspecified Is this a current diagnosis for this admission?: Yes Plan: Continue home meds (6) History of bronchial asthma Is this a current diagnosis for this admission?: Yes Plan: In remission
[2018-10-20] MEDS ORDERED: INSULIN GLARGINE,HUM.REC.ANLOG 1,000 UNIT/10 ML VIAL SUBCUT SCH (18:00)
[2018-10-20] MEDS: KETOROLAC TROMETHAMINE INJ/PF 30 MG/1 ML SDV IV PRN (18:30)
--- NOTE | 2018-10-20 19:10 | Operative Report ---
Nonrecallable Operative Report DATE OF SURGERY: 10/20/18 PREOPERATIVE DIAGNOSIS: 1. Diabetic foot infection. 2. Nonviable skin over blistered/infected area. POSTOPERATIVE DIAGNOSIS: Same as above OPERATION: Sharp, excisional debridement of nonviable skin of the great toe, associated with diabetic foot infection. SURGEON: WHIT JOHNSON ANESTHESIA: Other - None TISSUE REMOVED OR ALTERED: Skin of the great toe COMPLICATIONS: None apparent ESTIMATED BLOOD LOSS: Minimal PROCEDURE: Drains/implants: Xeroform gauze dressing. Procedure in detail: After informed consent was obtained from the patient she was laid in the supine position in the hospital room. The great toe was inspected. There is a large amount of /nonviable skin overlying an area of blister/infection. The nonviable skin was sharply debrided away using iris scissors. The total area was approximately 1.5 x 1 cm. Once all the nonviable skin was removed, a Xeroform dressing was placed, and the procedure was concluded. All sponge, instrument, and needle counts were correct x2. Condition: Stable.
--- NOTE | 2018-10-20 19:14 | PDOC PROGRESS REPORT ---
Subjective Progress Note for:: 10/20/18 Subjective:: There is a 73-year-old female with a diabetic foot infection. She denies chest pain, shortness of breath, fevers, chills, nausea, vomiting, headache, dizziness, fatigue, or malaise. Reason For Visit: TOE OSTEO DM, CHRONIC PAIN Physical Exam Vital Signs: Temp Pulse Resp BP Pulse Ox 97.6 F 86 16 135/72 H 95 10/20/18 15:27 10/20/18 15:37 10/20/18 15:37 10/20/18 15:27 10/20/18 15:37 Intake & Output 10/19/18 10/20/18 10/21/18 06:59 06:59 06:59 Intake Total 2922 550 Output Total 725 Balance 2197 550 Weight 72.7 kg 72.2 kg General appearance: PRESENT: no acute distress, cooperative Head exam: PRESENT: atraumatic, normocephalic Eye exam: PRESENT: EOMI, PERRLA Mouth exam: PRESENT: moist, neck supple Neck exam: ABSENT: thyromegaly, tracheal deviation Respiratory exam: PRESENT: unlabored. ABSENT: chest wall tenderness, tachypnea, wheezes Pulses: PRESENT: normal radial pulses GI/Abdominal exam: PRESENT: soft. ABSENT: distended, tenderness Rectal exam: PRESENT: deferred Neurological exam: PRESENT: alert, awake, oriented to person, oriented to place, oriented to time, oriented to situation Psychiatric exam: ABSENT: agitated, anxious, depressed Focused psych exam: ABSENT: delusional Skin exam: PRESENT: other - Blister to the great toe with nonviable, necrotic skin overlying infection. Results Laboratory Results: 10/20/18 06:50 10/20/18 06:50 10/20/18 10/20/18 06:50 06:50 WBC 6.0 RBC 3.95 Hgb 12.5 Hct 34.8 L MCV 88 MCH 31.7 MCHC 35.9 RDW 12.9 Plt Count 207 Seg Neutrophils % 66.7 Lymphocytes % 22.2 Monocytes % 8.5 Eosinophils % 2.1 Basophils % 0.5 Absolute Neutrophils 4.0 Absolute Lymphocytes 1.3 Absolute Monocytes 0.5 Absolute Eosinophils 0.1 Absolute Basophils 0.0 Sodium 138.2 Potassium 3.9 Chloride 102 Carbon Dioxide 28 Anion Gap 8 BUN 15 Creatinine 0.67 Est GFR ( Amer) > 60 Est GFR (Non-Af Amer) > 60 Glucose 182 H Calcium 9.7 Impressions: Foot X-Ray 10/18/18 18:19 IMPRESSION: Oblique lucency in the medial aspect of the base of the proximal phalanx of the left great toe as well as the distal aspect of the 1st metatarsal, unclear if this could represent acute or chronic injury. Lower Extremity MRI 10/19/18 00:00 IMPRESSION: 1. No findings to suggest osteomyelitis. 2. Nonspecific abnormal signal of the soft tissues of the forefoot which may represent soft tissue edema versus cellulitis. No focal fluid collection. Assessment & Plan - Diagnosis (1) Diabetic infection of left foot Is this a current diagnosis for this admission?: Yes - Plan Summary Plan Summary: This is a 73-year-old female with a diabetic left foot infection. Patient has an area of blister with purulent material underneath. The blister has ruptured. The overlying skin is now necrotic and nonviable. I have debrided the nonviable tissue away with iris scissors. There is no other infection present. Continue with antibiotic ointment and twice daily dressing changes. No further surgical intervention is anticipated. Follow-up with the wound care center and/or [facility] for continued follow-up. I will see the patient again on an as-needed basis. Please renotify with any questions or concerns.
[2018-10-20] MEDS: ATORVASTATIN CALCIUM 80 MG TABLET PO SCH (23:13)
[2018-10-20] MEDS: AMITRIPTYLINE HCL 25 MG TABLET PO SCH (23:13)
[2018-10-21] MEDS: CLINDAMYCIN 600 MG/D5W RTU 600 MG/50 ML RTUPB IV SCH ×2 (01:30→10:30)
[2018-10-21] MEDS: OXYCODONE-ACETAMINOPHEN 5-325 MG TABLET PO PRN (03:51)
[2018-10-21] MEDS: INSULIN LISPRO 100 UNIT/ML 3 ML VIAL SUBCUT SCH ×2 (08:34→13:03)
[2018-10-21] MEDS: KETOROLAC TROMETHAMINE INJ/PF 30 MG/1 ML SDV IV PRN (08:35)
[2018-10-21] MEDS: MORPHINE SULFATE SR 30 MG TABLET PO SCH (10:27)
[2018-10-21] MEDS: APIXABAN 5 MG TABLET PO SCH (10:28)
[2018-10-21] MEDS: AMLODIPINE BESYLATE 5 MG TABLET PO SCH (10:28)
[2018-10-21] MEDS: ASPIRIN 81 MG TABLET, CHEWABLE PO SCH (10:28)
[2018-10-21] MEDS: CLONAZEPAM 1 MG TABLET PO SCH (10:29)
[2018-10-21] MEDS: MAGNESIUM OXIDE 400 MG TABLET PO SCH (10:29)
[2018-10-21] MEDS: DOCUSATE SODIUM 100 MG CAPSULE PO SCH (10:30)
[2018-10-21] MEDS: INSULIN GLARGINE,HUM.REC.ANLOG 1,000 UNIT/10 ML VIAL SUBCUT SCH (10:37)
[2018-10-21] MEDS: METOPROLOL SUCCINATE 50 MG TAB.SR.24H PO SCH (10:39)
--- NOTE | 2018-10-21 10:43 | PDOC DISCHARGE SUMMARY ---
General - Admit/Disc Date/PCP Admission Date/Primary Care Provider: 10/19/18 02:27 BETHANY AVERY, Discharge Date: 10/21/18 - Discharge Diagnosis (1) Left big toe cellulitis Is this a current diagnosis for this admission?: Yes (2) Type 2 diabetes mellitus Is this a current diagnosis for this admission?: Yes (3) Paroxysmal atrial fibrillation Is this a current diagnosis for this admission?: Yes (4) Hypertension Is this a current diagnosis for this admission?: Yes (5) Hyperlipidemia Is this a current diagnosis for this admission?: Yes (6) History of bronchial asthma Is this a current diagnosis for this admission?: Yes - Additional Information Resuscitation Status: Full Code Home Medications: Albuterol Sulfate [Proair HFA Inhalation Aerosol 8.5 gm MDI] 2 puff IH Q4HP PRN 10/19/18 Amitriptyline HCl [Elavil 25 mg Tablet] 75 mg PO QHS 10/19/18 Amlodipine Besylate [Norvasc 5 mg Tablet] 5 mg PO DAILY 10/19/18 Apixaban [Eliquis 5 mg Tablet] 5 mg PO BID 10/19/18 Atorvastatin Calcium [Lipitor 80 mg Tablet] 80 mg PO QHS 10/19/18 Calcium Carbonate 500 mg PO DAILY 10/19/18 Cholecalciferol (Vitamin D3) [Vitamin D3 1000 Unit Tablet] 1,000 unit PO DAILY 10/19/18 Clonazepam [Klonopin 1 mg Tablet] 1 mg PO Q8 10/19/18 Cyanocobalamin (Vitamin B-12) [Vitamin B-12 1000 mcg Tablet] 1,000 mcg PO DAILY 10/19/18 Esomeprazole Mag Trihydrate [Nexium] 40 mg PO DAILY 10/19/18 Ferrous Sulfate [Feosol 325 mg Tablet] 975 mg PO DAILY 10/19/18 Hydralazine HCl [Apresoline 50 mg Tablet] 50 mg PO Q8 10/19/18 Insulin Aspart [Novolog Flexpen] 6 units SQ MEALS 10/19/18 Insulin Glargine,Hum.rec.anlog [Lantus Insulin 100 Unit/1 ml 10 ml] 20 units SQ Q12 10/19/18 Levothyroxine Sodium [Synthroid 0.15 mg Tablet] 0.15 mg PO Q6AM 10/19/18 Lisinopril/Hydrochlorothiazide [Zestoretic 20-12.5 mg Tablet] 1 tab PO BID 10/19/18 Magnesium Oxide [Mag-Ox 400 mg Tablet] 400 mg PO DAILY 10/19/18 Metformin HCl [Glucophage] 1,000 mg PO BID 10/19/18 Metoprolol Succinate [Toprol XL 100 mg Tablet] 100 mg PO DAILY 10/19/18 [place]-3 Acid Ethyl Esters [Lovaza 1 gm Capsule] 2 gm PO BID 10/19/18 Oxycodone HCl 15 mg PO Q6HP PRN 10/19/18 History of Present Illness History of Present Illness: HEIDI WEISS is a 73 year old female with a past medical history of diabetes, paroxysmal atrial fibrillation, asthma, hypertension, dyslipidemia, depression and opiate dependent chronic pain. She presents to the emergency department after 10 days of erythema and pain to her left great toe occurring after wearing new shoes. She is prompted to follow-up with her primary care and was prescribed clindamycin without significant improvement she returns to her primary care and was referred to the emergency department for evaluation. An x- ray of the foot is concerning for osteomyelitis with an oblique lucency in the medial aspect of the base of the proximal phalanx in addition to the first metatarsal. She started on empiric antibiotics and referred to the hospitalist for admission. Patient denies previous foot ulcer or prolonged uncontrolled diabetes. She otherwise denies diarrhea and feels well. Hospital Course Hospital Course: This is a 73 years old female patient with past medical history of hypertension, hyperlipidemia, diabetes mellitus, paroxysmal atrial fibrillation, bronchial asthma and opiate dependent presented with chief complaint of left great toe pain. Patient found to have cellulitis. Surgical consultation made and she is evaluated by Dr. Valdes who recommended medical management. Her hemoglobin A1c is 9.5 which reflects her that her diabetes is not well controlled. MRI of the foot reported as no sign of osteomyelitis. Her wound culture grew group C beta-hemolytic Streptococcus, so I discontinued vancomycin and Cipro and switched her to clindamycin since patient is allergic to penicillin. I seen patient sitting on the bedside. She is awake alert and oriented. She is not in pain or distress. Vital signs are within normal limits. Patient is stable enough to go home. I will continue all her home medication and I will send her with clindamycin. Set up follow-up for her at wound clinic. Physical Exam Vital Signs: Temp Pulse Resp BP Pulse Ox 97.7 F 76 16 117/55 L 99 10/21/18 08:04 10/21/18 08:04 10/21/18 08:04 10/21/18 08:04 10/21/18 08:04 Intake & Output 10/20/18 10/21/18 10/22/18 06:59 06:59 06:59 Intake Total 2922 1302 Output Total 725 402 Balance 2197 900 Weight 72.2 kg 70.6 kg General appearance: PRESENT: no acute distress Eye exam: PRESENT: conjunctiva pink Mouth exam: PRESENT: moist Neck exam: ABSENT: carotid bruit, JVD, lymphadenopathy, thyromegaly Respiratory exam: PRESENT: clear to auscultation giuliano. ABSENT: rales, rhonchi, wheezes Cardiovascular exam: PRESENT: RRR. ABSENT: diastolic murmur, rubs, systolic mur mur Neurological exam: PRESENT: alert, awake, oriented to time, oriented to situation Results Laboratory Results: 10/20/18 06:50 10/20/18 06:50 10/19/18 09:00 Toe - Left Big Toe Gram Stain - Final 10/19/18 09:00 Toe - Left Big Toe Wound Culture - Final Group C Beta Streptococcus Skin Roxie Impressions: Foot X-Ray 10/18/18 18:19 IMPRESSION: Oblique lucency in the medial aspect of the base of the proximal phalanx of the left great toe as well as the distal aspect of the 1st metatarsal, unclear if this could represent acute or chronic injury. Lower Extremity MRI 10/19/18 00:00 IMPRESSION: 1. No findings to suggest osteomyelitis. 2. Nonspecific abnormal signal of the soft tissues of the forefoot which may rep resent soft tissue edema versus cellulitis. No focal fluid collection. Qualifiers - * PATIENT BEING DISCHARGED WITH ANY OF THE FOLLOWING DIAGNOSIS: No
[2018-10-21 11:03] LABS: VANCOMYCIN,TROUGH 5.3 ug/mL (5.0-20.0)
[2018-10-21 12:37] VITALS: BP 128/79
== END 2018-10-21 14:42 | disposition home or self-care (01) | DRG 638 ==
LOC: ER 17:30 → EH 10-19 02:27 → 5 10-19 04:55
PROVIDERS: ADMIT Internal Medicine; ATTEND Internal Medicine
PROC: 0HBNXZZ Excision of Left Foot Skin, External Approach (ICD-10-PCS; principal; 2018-10-20)
DX: E10.628 Type 1 diabetes mellitus with other skin complications (principal); F11.20 Opioid dependence, uncomplicated; L03.032 Cellulitis of left toe; B95.4 Other streptococcus as the cause of diseases classified elsewhere; I48.0 Paroxysmal atrial fibrillation; I10 Essential (primary) hypertension; E78.5 Hyperlipidemia, unspecified; G89.29 Other chronic pain; F32.9 Major depressive disorder, single episode, unspecified; J45.909 Unspecified asthma, uncomplicated; Z79.51 Long term (current) use of inhaled steroids; Z79.4 Long term (current) use of insulin; Z79.899 Other long term (current) drug therapy; Z90.710 Acquired absence of both cervix and uterus; Z90.49 Acquired absence of other specified parts of digestive tract; Z87.891 Personal history of nicotine dependence; Z88.0 Allergy status to penicillin; Z88.7 Allergy status to serum and vaccine; Z88.8 Allergy status to other drugs, medicaments and biological substances; Z91.040 Latex allergy status; Z86.73 Personal history of transient ischemic attack (TIA), and cerebral infarction without residual deficits
CPT/HCPCS: 36415; 80048; 80053; 80202; 82962; 83036; 85025; 87070; 87077; 87205; 99284; J0744; J1815; J1885; J2060; J3370; J3490; J7030; J7060

== ENCOUNTER → 2019-09-20 | Outpatient (CLI) | payer MEDICARE, MEDICAID ==
--- NOTE | 2019-09-21 12:24 | RADIOLOGY REPORT (SQ) ---
EXAM DESCRIPTION: MRI LUMBAR SPINE WITHOUT COMPLETED DATE/TIME: 09/20/2019 5:38 pm REASON FOR STUDY: M47.27 OTHER SPONDYLOSIS WITH RADICULOPATHY, LUMBOSACRAL REGION M47.27 OTHER SPON DYLOSIS WITH RADICULOPATHY, LUMBOSACRAL REG COMPARISON: None. TECHNIQUE: Sagittal and Axial imaging includes T1, T2, STIR and gradient echo sequences. Coronal T2/ HASTE imaging. LIMITATIONS: None. FINDINGS: VISUALIZED UPPER ABDOMEN: Limited evaluation. No acute or suspicious findings suggested. SEGMENTATION: No transitional anatomy. The lowest well-developed disc space is labeled L5-S1. ALIGNMENT: Anatomic. VERTEBRAE: Intact. BONE MARROW: Mild reactive marrow changes at L2-3. DISC SIGNAL: Decreased T2 signal intensity most prominently at L2-3 and at L4-5 the disc spaces are n arrowed from L2 to L5. POSTERIOR ELEMENTS: Generally intact. No pars defect evident. HARDWARE: None in the spine. CORD AND CONUS: Normal in size and signal intensity. Conus at the T12-L1 level. SOFT TISSUES: No aortic aneurysm seen. No bulky retroperitoneal adenopathy or mass. No paraspinal mas s or fluid. L1-L2: No significant spinal stenosis or exit foraminal stenosis. L2-L3: Concentric disc bulging with mild facet and ligament hypertrophy results in moderate central c anal stenosis but no significant foraminal stenosis L3-L4: Concentric disc bulging with mild facet and ligament hypertrophy. Significant central canal s tenosis. Mild right foraminal stenosis. L4-L5: Concentric disc bulge with facet and ligament hypertrophy. Significant central canal stenosis and mild right foraminal stenosis. L5-S1: No significant spinal stenosis or exit foraminal stenosis. LOWER THORACIC: Incompletely imaged. No stenosis seen. SACRUM: Visualized upper sacrum intact. OTHER: No other significant findings. IMPRESSION: Concentric disc bulging from L2-L5 with facet and ligament changes resulting in central canal stenoses and foraminal stenoses as described. TECHNICAL DOCUMENTATION: JOB ID: [id number] 2010 [facility] [employer]- All Rights Reserved Reading location - IP/workstation name: [email or web address]
== END ==
LOC: RAD 16:27
PROVIDERS: ATTEND Nurse Practitioner Family
DX: M47.27 Other spondylosis with radiculopathy, lumbosacral region (principal)
CPT/HCPCS: 72148

== ENCOUNTER 2019-10-15 13:20 | Emergency (ER) | payer MEDICARE, MEDICAID ==
[2019-10-15 13:24] VITALS: BP 179/76
--- NOTE | 2019-10-15 13:43 | ER Document Report ---
ED Neck/Back Problem - General Chief Complaint: Back Pain Stated Complaint: BACK PAIN Time Seen by Provider: 10/15/19 13:25 Primary Care Provider: BETHANY AVERY DO [Primary Care Provider] - Follow up in 3-5 days Mode of Arrival: Wheelchair Information source: Patient Notes: 74 year old female presented to ED for complaint of low back pain with has right sided sciatica. She is on gabapentin. She is diabetic so I cannot treated with steroids. She has had a history of a stroke and multiple other conditions I cannot give her anti-inflammatories. I will give her a small sixpack of Leo at this time and she is to follow-up with her primary care doctor on Thursday or soon as possible. TRAVEL OUTSIDE OF THE [place] IN LAST 30 DAYS: No - HPI Patient complains to provider of: Pain, Lower back Onset: Other - Month Onset: Chronic Timing: Still present Quality of pain: Sharp Severity: Severe Pain Level: 5 Context: Lifting, Turning Recent injury: No Associated symptoms: Like prior neck/back pain, Radiation to leg, Lower back pain Exacerbated by: Movement of trunk, Sitting position Relieved by: Nothing Similar symptoms previously: Yes Recently seen / treated by doctor: Yes - Related Data Allergies/Adverse Reactions: latex Allergy (Intermediate, Verified 10/15/19 13:25) RASH butorphanol tartrate [From Stadol] Allergy (Verified 10/15/19 13:25) Penicillins Allergy (Verified 10/15/19 13:25) Tetanus Vaccines and Toxoid [Tetanus] Allergy (Verified 10/15/19 13:25) Past Medical History - General Information source: Patient - Social History Smoking Status: Never Smoker Chew tobacco use (# tins/day): No Frequency of alcohol use: None Drug Abuse: None Lives with: Family Family History: Reviewed & Not Pertinent Patient has suicidal ideation: No Patient has homicidal ideation: No - Past Medical History Cardiac Medical History: Reports: Hx Hypercholesterolemia, Hx Hypertension - MEDICATED Pulmonary Medical History: Reports: Hx Asthma - INHALERS PRN Neurological Medical History: Reports: Hx Cerebrovascular Accident - LIGHT NO RESIDUAL, Hx Seizures - LAST ONE WHEN SHE WAS 18 Endocrine Medical History: Reports: Hx Diabetes Mellitus Type 2 Renal/ Medical History: Reports: None Malignancy Medical History: Reports: None GI Medical History: Reports: None Musculoskeletal Medical History: Reports None Skin Medical History: Reports None Psychiatric Medical History: Reports: Hx Depression Traumatic Medical History: Reports: Hx Fractures - Arm and ankle Infectious Medical History: Reports: None Past Surgical History: Reports: Hx Cholecystectomy, Hx Hysterectomy - Immunizations Hx Diphtheria, Pertussis, Tetanus Vaccination: No Hx Pneumococcal Vaccination: 01/14/12 Review of Systems - Review of Systems Constitutional: No symptoms reported EENT: No symptoms reported Cardiovascular: No symptoms reported Respiratory: No symptoms reported Gastrointestinal: No symptoms reported Genitourinary: No symptoms reported Female Genitourinary: No symptoms reported Musculoskeletal: Back pain, Muscle pain, Muscle stiffness Skin: No symptoms reported Hematologic/Lymphatic: No symptoms reported Neurological/Psychological: No symptoms reported -: Yes All other systems reviewed and negative Physical Exam - Vital signs Vitals: Temp Pulse Resp BP Pulse Ox 97.9 F 86 18 179/76 H 97 10/15/19 13:24 10/15/19 13:24 10/15/19 13:24 10/15/19 13:24 10/15/19 13:24 Interpretation: Normal - General General appearance: Appears well, Alert - HEENT Head: Normocephalic, Atraumatic Eyes: Normal Pupils: PERRL - Respiratory Respiratory status: No respiratory distress Chest status: Nontender Breath sounds: Normal Chest palpation: Normal - Cardiovascular Rhythm: Regular Heart sounds: Normal auscultation Murmur: No - Abdominal Inspection: Normal Distension: No distension Bowel sounds: Normal Tenderness: Nontender Organomegaly: No organomegaly - Back Back: Normal, Tender. No: Deformity/step-off, CVA tenderness, Vertebra tenderness, Scars, Scoliosis, Wounds - Extremities General upper extremity: Normal inspection, Nontender, Normal color, Normal ROM, Normal temperature General lower extremity: Normal inspection, Nontender, Normal color, Normal ROM, Normal temperature, Normal weight bearing. No: Sameer's sign - Neurological Neuro grossly intact: Yes Cognition: Normal Orientation: AAOx4 [place] Coma Scale Eye Opening: Spontaneous Melody Coma Scale Verbal: Oriented Melody Coma Scale Motor: Obeys Commands Melody Coma Scale Total: 15 Speech: Normal Motor strength normal: LUE, RUE, LLE, RLE Sensory: Normal - Psychological Associated symptoms: Normal affect, Normal mood - Skin Skin Temperature: Warm Skin Moisture: Dry Skin Color: Normal Course - Re-evaluation Re-evalutation: 10/15/19 13:44 After performing a Medical Screening Examination, I estimate there is LOW risk for EXPANDING OR RUPTURED ABDOMINAL AORTIC ANEURYSM, CAUDA EQUINA SYNDROME, EPIDURAL MASS LESION, or HERNIATED DISK CAUSING SEVERE SPINAL STENOSIS, thus I consider the discharge disposition reasonable. I have reevaluated this patient multiple times and no significant life threatening changes are noted. The patient and I have discussed the diagnosis and risks, and we agree with discharging home and close follow-up. We also discussed returning to the Emergency Department immediately if new or worsening symptoms occur with the understanding that symptoms and presentations can change. We have discussed the symptoms which are most concerning (e.g., saddle anesthesia, urinary or bowel incontinence or retention, changing or worsening pain) that necessitate immediate return. - Vital Signs Vital signs: Temp Pulse Resp BP Pulse Ox 97.9 F 86 18 179/76 H 97 10/15/19 13:24 10/15/19 13:24 10/15/19 13:24 10/15/19 13:24 10/15/19 13:24 Discharge - Discharge Clinical Impression: Low back pain Qualifiers: Chronicity: chronic Back pain laterality: right Sciatica presence: with sciatica Sciatica laterality: sciatica of right side Qualified Code(s): M54.41 - Lumbago with sciatica, right side Condition: Stable Disposition: HOME, SELF-CARE Additional Instructions: LOW BACK PAIN: Three out of every four people will have an episode of disabling back pain during their lifetime. Most commonly the pain is due to straining of the muscles and ligaments in the low back. Usual treatment includes: (1) Rest on a firm surface. Avoid lying on your stomach. (2) Ice pack the painful area. After a few days, gentle heat may be used intermittently to relax the area, or ice packs can be continued. (3) Medication may be needed -- muscle relaxers and antiinflammatory medicines are commonly used. (4) As the back improves, exercises are prescribed to strengthen the back and abdominal muscles. Your doctor will advise you on the proper care for your back at each stage in your recovery. You may be better in a few days -- or healing may take several weeks. If new symptoms of a "herniated disc" (radiation of pain, numbness, or tingling down the back of the leg or weakness in the leg) occur, you should be re-examined. Further testing may be necessary. ORAL NARCOTIC MEDICATION: You have been given a back for pain control. This medication is a narcotic. It's best taken with food, as nausea can result if taken on an empty stomach. Don't operate machinery or drive within six hours of taking this medication. Do not combine this medicine with alcohol, or with any medication which can cause sedation (such as cold tablets or sleeping pills) unless you get permission from the physician. Narcotics tend to cause constipation. If possible, drink plenty of fluids and eat a diet high in fiber and fruits. Please be aware that prescription narcotics also have the potential for abuse. People become addicted to these medications because of the general sense of wellbeing that they induce. This feeling along with a significant reduction in tension, anxiety, and aggression provides a stimulating seductive quality to these drugs. Once your pain is under control, we encourage you to discard your unused narcotics. ICE PACKS: Apply ice packs frequently against the painful area. Many different schedules are recommended, such as "20 minutes on, 20 minutes off" or "one hour ice, two hours rest." If you need to work, you may need to go longer between ice treatments. You should plan to have the area ice packed AT LEAST one fourth of the time. The ice should be applied over the wrap, tape, or splint, or over a layer of cloth -- not directly against the skin. Some ice bags have a built-in cloth and can be put directly on the skin. WARM PACKS: After approximately two days, apply gentle heat (such as a heating pad or hot water bottle) for about 20 to 30 minutes about every two hours -- at least four times daily. Warmth and elevation will help you make a more rapid recovery , and will ease the pain considerably. Do not use HOT heat, and never apply heat for longer than 30 minutes. The continuous heat can invisibly damage skin and muscles -- even when no burn is seen on the surface. Damaged muscles can make you MORE sore. Stretching Exercises for the Back The physician has recommended that you begin stretching exercises for your back. These are often used even while the back is painful. However, you should notify the physician if the activities seem to increase your pain. PELVIC TILT: Lie flat on your back with knees bent. Tighten your stomach and buttock muscles so it flattens your lower back against the floor. Hold 10 seconds. Repeat 10 times, twice daily. KNEE RAISE: Lying on the back with knees bent, raise one knee to your chest, then the other. Hold both knees against the chest 10 seconds, then lower one knee at a time. Repeat 10 times, twice daily. PARTIAL TRUNK RAISE: Lie face down, arms at your sides. Keeping your waist on the floor, use your arms raise your chest up. Support yourself on your elbows for 30 seconds. Repeat twice daily, increasing the time to two minutes as you recover. FOLLOW-UP CARE: If you have been referred to a physician for follow-up care, call the physicians office for an appointment as you were instructed or within the next two days. If you experience worsening or a significant change in your symptoms, notify the physician immediately or return to the Emergency Department at any time for re-evaluation. Forms: Elevated Blood Pressure Referrals: BETHANY AVERY DO [Primary Care Provider] - Follow up in 3-5 days
[2019-10-15] MEDS ORDERED: LIDOCAINE 5% (700 MG) TRANSDERMAL ADH..PATCH TP ONE (13:47)
[2019-10-15] MEDS ORDERED: HYDROCODONE/ACETAMINOPHEN 5-325 MG (6 TAB/ER DISP) PO PRN (13:50)
== END 2019-10-15 13:58 | disposition home or self-care (01) ==
LOC: ER 13:20
DX: G89.29 Other chronic pain (principal); M54.41 Lumbago with sciatica, right side; E11.9 Type 2 diabetes mellitus without complications; I10 Essential (primary) hypertension; J45.909 Unspecified asthma, uncomplicated; Z91.040 Latex allergy status; Z88.6 Allergy status to analgesic agent; Z88.5 Allergy status to narcotic agent; Z88.0 Allergy status to penicillin; Z88.7 Allergy status to serum and vaccine
CPT/HCPCS: 99283; A9270 ×2

== ENCOUNTER → 2020-05-03 | Outpatient (CLI) | payer MEDICARE, MEDICAID ==
--- NOTE | 2020-05-03 15:40 | RADIOLOGY REPORT (SQ) ---
EXAM DESCRIPTION: SHOULDER RIGHT 2 OR MORE VIEWS IMAGES COMPLETED DATE/TIME: 05/03/2020 2:46 pm REASON FOR STUDY: M25.511 PAIN IN RIGHT SHOULDER M25.511 PAIN IN RIGHT SHOULDER COMPARISON: None. NUMBER OF VIEWS: Three views. TECHNIQUE: Internal rotation, external rotation, and Y view images acquired of the right shoulder. LIMITATIONS: None. FINDINGS: MINERALIZATION: Normal. BONES: No acute fracture. No worrisome bone lesions. JOINTS: No dislocation. VISUALIZED LUNGS AND RIBS: No pneumothorax. No rib fracture. SOFT TISSUES: No radiopaque foreign body. OTHER: No other significant finding. IMPRESSION: NEGATIVE STUDY OF THE RIGHT SHOULDER. NO RADIOGRAPHIC EVIDENCE OF ACUTE INJURY. TECHNICAL DOCUMENTATION: JOB ID: [id number] 2010 [employer]- All Rights Reserved Reading location - IP/workstation name: [email or web address]
== END ==
LOC: RAD 14:29
PROVIDERS: ATTEND Family Medicine
DX: M25.511 Pain in right shoulder (principal)

== ENCOUNTER 2020-06-11 20:25 | Emergency (ER) | payer MEDICARE, MEDICAID ==
[2020-06-11 20:49] VITALS: BP 143/63
[2020-06-11] MEDS ORDERED: OXYCODONE-ACETAMINOPHEN 5-325 MG TABLET PO ONE (20:53)
--- NOTE | 2020-06-11 20:53 | ER Document Report ---
ED Medical Screen (RME) - General Chief Complaint: Ankle Pain Stated Complaint: RIGHT LEG AND ANKLE PAIN Time Seen by Provider: 06/11/20 20:46 Primary Care Provider: BETHANY AVERY DO [Primary Care Provider] - Follow up as needed Mode of Arrival: Wheelchair Information source: Patient Notes: HPI; 75-year-old female presents to the emergency room complaining of persistent right hip pain. Patient states she slipped and fell 2 weeks ago on a wet driveway landing on her right hip. States she has been seen at her primary care physician's office and x-ray was ordered but she has not had had the opportunity to get the x-ray done. Denies any previous history of trauma to her right hip. She is followed by pain management for chronic low back pain. States is diff icult to walk secondary to the pain. Has been taking her Percocet without relief. Last dose 5 hours prior to arrival. She denies any loss of control of her bowels or bladder. No saddle anesthesia. States pain does not radiate down her legs. PE: Alert and oriented x3. Lungs: Clear to auscultation without rales, rhonchi, wheezes. Heart: Regular rate rhythm without murmurs, rubs, gallops. Mu sculoskeletal: There is tenderness on palpation from L4-S1. There is tenderness over the right sciatic notch. She has negative straight leg raising bilaterally. Unable to evaluate hip in triage. I have greeted and performed a rapid initial assessment of this patient. A comprehensive ED assessment and evaluation of the patient, analysis of test results and completion of the medical decision making process will be conducted by additional ED providers. I have specifically instructed the patient or family members with the patient to immediately return to any nursing staff should anything change in the patient's condition or with their chief complaint. TRAVEL OUTSIDE OF THE [place] IN LAST 30 DAYS: No - Related Data Allergies/Adverse Reactions: latex Allergy (Intermediate, Verified 10/15/19 13:25) RASH butorphanol tartrate [From Stadol] Allergy (Verified 10/15/19 13:25) Penicillins Allergy (Verified 10/15/19 13:25) Tetanus Vaccines and Toxoid [Tetanus] Allergy (Verified 10/15/19 13:25) Past Medical History - Past Medical History Cardiac Medical History: Reports: Hx Hypercholesterolemia, Hx Hypertension - MEDICATED Denies: Hx Heart Attack Pulmonary Medical History: Reports: Hx Asthma - INHALERS PRN Neurological Medical History: Reports: Hx Cerebrovascular Accident - LIGHT NO RESIDUAL, Hx Seizures - LAST ONE WHEN SHE WAS 18 Endocrine Medical History: Reports: Hx Diabetes Mellitus Type 1, Hx Diabetes Mellitus Type 2 Psychiatric Medical History: Reports: Hx Depression Traumatic Medical History: Reports: Hx Fractures - Arm and ankle Past Surgical History: Reports: Hx Cholecystectomy, Hx Hysterectomy - Immunizations Hx Diphtheria, Pertussis, Tetanus Vaccination: No Physical Exam - Vital signs Vitals: Temp Pulse Resp BP Pulse Ox 98.3 F 72 18 143/63 H 97 06/11/20 20:48 06/11/20 20:48 06/11/20 20:48 06/11/20 20:48 06/11/20 20:48 Course - Vital Signs Vital signs: Temp Pulse Resp BP Pulse Ox 98.3 F 72 18 143/63 H 97 06/11/20 20:48 06/11/20 20:48 06/11/20 20:48 06/11/20 20:48 06/11/20 20:48 Doctor's Discharge - Discharge Referrals: BETHANY AVERY DO [Primary Care Provider] - Follow up as needed
--- NOTE | 2020-06-11 21:58 | RADIOLOGY REPORT (SQ) ---
EXAM DESCRIPTION: CT RT HIP WITHOUT CLINICAL HISTORY: 75 years Female, right hip injury COMPARISON: None. TECHNIQUE: Axial images of the right hip were performed without the use of intravenous contrast, with sagittal and coronal reformatted images. This exam was performed according to our departmental dose-optimization program which includes use of Automated Exposure Control, adjustment of the mA and/or kV according to patient size and/or use of iterative reconstruction technique. FINDINGS: No fracture or dislocation. No evidence of soft tissue hematoma. There are no significant degenerative changes. IMPRESSION: No fracture or dislocation.
== END 2020-06-12 02:52 | disposition left against medical advice (07) ==
LOC: ER 20:25
DX: S79.911A Unspecified injury of right hip, initial encounter (principal); M25.551 Pain in right hip; W01.0XXA Fall on same level from slipping, tripping and stumbling without subsequent striking against object, initial encounter; Y92.89 Other specified places as the place of occurrence of the external cause; M54.5 Low back pain; G89.29 Other chronic pain; I10 Essential (primary) hypertension; J45.909 Unspecified asthma, uncomplicated; E11.9 Type 2 diabetes mellitus without complications; Z91.040 Latex allergy status; Z88.6 Allergy status to analgesic agent; Z88.5 Allergy status to narcotic agent; Z88.0 Allergy status to penicillin; Z88.7 Allergy status to serum and vaccine; Z53.20 Procedure and treatment not carried out because of patient's decision for unspecified reasons
CPT/HCPCS: 99281; 73700; A9270